=== PATIENT | female | born 1960 | race Caucasian/White ===

== ENCOUNTER → 2017-03-08 | Outpatient (CLI) | payer OTHER ==
--- NOTE | 2017-03-11 11:26 | MM ---
Reason for exam: follow-up at short interval from prior study. Last mammogram was performed 6 months ago. History: Patient is postmenopausal. Taking estrogen for 6 years 1 month. Physical Findings: Nurse did not find any significant physical abnormalities on exam. MG Diagnostic Mammo w CAD JESSICA Bilateral CC and MLO view(s) were taken. Prior study comparison: September 03, 2016, bilateral MG screening mammo w CAD. August 10, 2015, bilateral MG screening mammo w CAD. The breast tissue is heterogeneously dense. This may lower the sensitivity of mammography. No significant new findings when compared with previous films. These results were verbally communicated with the patient and result sheet given to the patient on 03/08/17. ASSESSMENT: Benign, BI-RAD 2 RECOMMENDATION: Routine screening mammogram of both breasts in 1 year.
== END | disposition home or self-care (01) ==
LOC: RADMAMWWP 10:18
PROVIDERS: ATTEND Obstetrics & Gynecology
DX: R92.8 Other abnormal and inconclusive findings on diagnostic imaging of breast (principal)

== ENCOUNTER → 2017-09-11 | Outpatient (CLI) | payer MEDICARE, OTHER ==
--- NOTE | 2017-09-11 12:58 | WWHP ---
[facility] - HISTORY AND PHYSICAL CHIEF COMPLAINT: The patient is here for her routine gynecologic exam. HPI: This is a 57-year-old, G3, P2-0-1-2 with an LMP of 2001. She is status post MADELINE, LSO and later RSO for benign reasons. The patient is without gynecologic complaints. PAST MEDICAL HISTORY: Schizoaffective disorder with bipolar component, type 2 diabetes, chronic hypertension and elevated cholesterol. MEDICATIONS: 1. Invega injections monthly. 2. Pravastatin 1 daily. 3. Metformin 1 daily. 4. Hydrochlorothiazide 1 daily. ALLERGIES: No known drug allergies. 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 SOCIAL HISTORY: She quit smoking in 2014 and denies alcohol and drug use. She has been a since 2004 and is not sexually active. She is not seeing anybody at this time and she is currently unemployed. REVIEW OF SYSTEMS: She has lost about 22 pounds over the last year and she has done this with diet changes. She denies respiratory, cardiac and GI problems. PHYSICAL EXAM: Blood pressure 114/84, height 5 feet 5 inches, weight 242 pounds, temperature 98.7, pulse 112. This is a well-developed, heavyset white female, who is alert and oriented x3, in no acute distress. HEENT: Within normal limits. NECK: Supple without mass or thyromegaly. CHEST AND LUNGS: Clear to auscultation. HEART: Mild tachycardia. BREASTS: Without mass or discharge. AXILLARY: Negative for adenopathy. BACK: Negative for CVA tenderness. ABDOMEN: Obese, soft, nontender without palpable masses. PELVIC: Normal external genitalia with no significant atrophy. Vagina reveals mild atrophy without lesions. There is no evidence of prolapse. Bimanual is negative for mass or tenderness. RECTOVAGINAL: Negative for mass or tenderness and is negative for occult blood. EXTREMITIES: Nontender. IMPRESSION: A 57-year-old menopausal female, status post total abdominal hysterectomy and bilateral salpingo-oophorectomy for benign reasons with normal gynecologic exam. PLAN: 1. Pap smears have been discontinued. 2. Self-breast examination was discussed. 3. Bilateral screening mammogram will be due in 02/2018 and a slip was given to the patient for this. 4. Osteoporosis prevention was discussed. We will plan on doing a bone density test at the time of her mammogram because of her early surgical menopause. She does have an order for this. 5. I have recommended screening colonoscopy. She states she is refusing to do this for personal reasons. I have discussed the reasoning for colorectal screening and different alternatives. She will consider this. 6. She will return in 1 year. TYRONE / CAIT: [id number] /
== END ==
LOC: WWCWWP 10:37
PROVIDERS: ATTEND Obstetrics & Gynecology
DX: Z01.419 Encounter for gynecological examination (general) (routine) without abnormal findings (principal)

== ENCOUNTER → 2017-09-11 | Outpatient (CLI) | payer MEDICARE, OTHER ==
[2017-09-11 20:44] LABS: Hemoglobin A1C 6.4 % (4.2-6.1)
== END | disposition home or self-care (01) ==
LOC: LABWHC1 11:22
PROVIDERS: ATTEND Psychiatry & Neurology Psychiatry
DX: Z51.81 Encounter for therapeutic drug level monitoring (principal); Z79.899 Other long term (current) drug therapy
CPT/HCPCS: 36415; 80061; 82947; 83036; 84146; 84439; 84443

== ENCOUNTER → 2018-04-16 | Outpatient (CLI) | payer MEDICARE ==
--- NOTE | 2018-04-16 13:51 | BD ---
EXAMINATION TYPE: Axial Bone Density DATE OF EXAM: 04/16/2018 COMPARISON: NONE CLINICAL HISTORY: Z78.0 POST MENOPAUSAL Height: 64 Weight: 229.5 FRAX RISK QUESTIONS: Alcohol (3 or more units per day): no Family History (Parent hip fracture): no Glucocorticoids (More than 3mos): no (Ex: prednisone, prednisolone, methylprednisolone, dexamethasone, and hydrocortisone). History of Fracture in Adulthood: no Secondary Osteoporosis: 1. Type 1 Diabetes: no 2. Hyperthyroidism: no 3. Menopause before 45: yes 4. Malnutrition: no 5. Chronic liver disease: no Rheumatoid Arthritis: no Current Tobacco Use: no RISK FACTORS HISTORY OF: Family History of Osteoporosis: yes Active: yes Diet low in dairy products/other sources of calcium: no Postmenopausal woman: total hysterectomy AGE 42 Lost more than 2 inches in height since high school: no MEDICATIONS: blood pressure, lipitor, metformin, abilify Additional History: EXAM MEASUREMENTS: Bone mineral densitometry was performed using the [employer] System. Bone mineral density as measured about the Lumbar spine is: ----- L1-L4(G/cm2): 1.343 T Score Values are as follows: ----- L2: 0.9 ----- L3: 2.1 ----- L4: 1.9 ----- L1-L4: 1.4 Bone mineral density has: increased 4.9 % since study of: 08.05.2003 Bone mineral density about the R hip (g/cm2): 0.984 Bone mineral density about the L hip (g/cm2): 0.968 T Score values are as follows: -----R Neck: -0.4 -----L Neck: -0.5 -----R Total: 0.2 -----L Total: 0.7 Bone mineral density has: decreased -1.3 % since study of: 08.05.2003 IMPRESSION: No evidence for osteoporosis or osteopenia. NOTE: T-SCORE=SD OF THE YOUNG ADULT MEAN.
--- NOTE | 2018-04-16 15:18 | MM ---
Reason for exam: screening (asymptomatic). Last mammogram was performed 1 year and 1 month ago. History: Patient is postmenopausal. Taking estrogen for 6 years 1 month. Physical Findings: A clinical breast exam by your physician is recommended on an annual basis and results should be correlated with mammographic findings. MG Screening Mammo w CAD Bilateral CC and MLO view(s) were taken. Prior study comparison: March 08, 2017, bilateral MG diagnostic mammo w CAD JESSICA. September 03, 2016, bilateral MG screening mammo w CAD. There are scattered fibroglandular densities. There is no discrete abnormality. No significant changes when compared with prior studies. ASSESSMENT: Negative, BI-RAD 1 RECOMMENDATION: Routine screening mammogram of both breasts in 1 year.
== END | disposition home or self-care (01) ==
LOC: RADMAMWWP 09:14
PROVIDERS: ATTEND Obstetrics & Gynecology
DX: Z12.31 Encounter for screening mammogram for malignant neoplasm of breast (principal); Z78.0 Asymptomatic menopausal state
CPT/HCPCS: 77067; 77080

== ENCOUNTER → 2019-07-21 | Outpatient (CLI) | payer MEDICARE ==
[2019-07-21 13:51] VITALS: BP 105/75; PULSE 105; RESP 18; TEMP 98.6; BMI 41.9
--- NOTE | 2019-07-21 14:43 | P.HPOB ---
History of Present Illness H&P Date: 07/21/19 Chief Complaint: The patient is here for her routine gynecologic exam and ma mmogram. This is a 59-year-old with an LMP of 2001. The patient is status post MADELINE, LSO and later RSO for benign reasons. Patient is without gynecologic complaints. Review of Systems The patient has gained 10 pounds over the last year. She denies respiratory, cardiac, or G.I. problems. Past Medical History Past Medical History: Diabetes Mellitus, Hyperlipidemia, Hypertension, Osteoarthritis (OA) Additional Past Medical History / Comment(s): Osteoarthritis of the left hip, type II diabetes. 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 She used ERT from 9898-3444. History of Any Multi-Drug Resistant Organisms: None Reported Past Surgical History: Cholecystectomy, Hysterectomy Additional Past Surgical History / Comment(s): MADELINE LSO and prior right oophorectomy. Arthroscopically with torn meniscus in right knee. right ankle chip fx. Past Anesthesia/Blood Transfusion Reactions: No Reported Reaction Past Psychological History: Bipolar, Depression, Schizoaffective Disorder Smoking Status: Former smoker Past Alcohol Use History: None Reported Additional Past Alcohol Use History / Comment(s): states she smokes 1ppd refused nicotine patch Past Drug Use History: None Reported Additional History: The patient quit smoking in 2014. She is a since 2004 and is not seeing anybody at this time. She is currently unemployed. - Past Family History Father Family Medical History: Myocardial Infarction ([place]) Additional Family Medical History / Comment(s): Father has and patient does not know cause. Apparently mother is alive at age 81. Patient has no sisters and no brothers. Family history of bipolar. Patient has 1 daughter and 1 son. Medications and Allergies Home Medications Medication Instructions Recorded Confirmed Type ARIPiprazole [Abilify] 07/21/19 History Atorvastatin [Lipitor] 07/21/19 History Hydrochlorothiazide [Hydrodiuril] 07/21/19 History metFORMIN HCL [Glucophage] 07/21/19 History Allergies Allergy/AdvReac Type Severity Reaction Status Date / Time No Known Allergies Allergy Verified 07/21/19 13:54 Exam Vital Signs Temp Pulse Resp BP Pulse Ox 07/21/19 13:37 98.6 F 105 H 18 105/75 91 L Intake and Output 08/07/21/19 07/21/19 22:59 06:59 14:59 Other: Weight 114.305 kg Height 5'5", weight 252 pounds, BMI 41.9. This is a well-developed well-nourished heavyset white female who is alert and oriented times 3 in no acute distress. HEENT: Within normal limits. NECK: Supple without mass or thyromegaly. CHEST AND LUNGS: Clear to auscultation. HEART: Regular rate and rhythm. BREASTS: Are without mass or discharge. AXILLARY EXAM: Negative for adenopathy. BACK: Negative for CVA tenderness. ABDOMEN: Soft, obese, nontender, without palpable masses. PELVIC EXAM: External genitalia appears normal with minimal atrophy. Vagina appears normal with minimal atrophy. There is no evidence of prolapse. Bimanual examination is negative for mass or tenderness. RECTAL EXAM: Rectovaginal exam is negative for mass or tenderness and is negative for occult blood. EXTREMITIES: Nontender. IMPRESSION: 1. 59-year-old menopausal female status post MADELINE LSO with prior right oophorectomy done for benign reasons. 2. Normal gynecologic exam. PLAN: 1. Pap smears have been discontinued. 2. Self breast awareness was discussed with the patient. 3. Screening mammogram will be done today. 4. Osteoporosis prevention was discussed. I have stressed the importance of adequate calcium, vitamin D and regular exercise. Recommended amounts of calcium and vitamin D were also discussed. 5. I've recommended screening colonoscopy based on her age. She is declining this. She has also discussed this with her primary care physician, Dr. Bassam Venegas. 6. She was advised to return in one year for her annual well woman exam.
--- NOTE | 2019-07-23 09:28 | MM ---
Reason for exam: screening (asymptomatic). Last mammogram was performed 1 year and 3 months ago. History: Patient is postmenopausal. Taking estrogen for 6 years 1 month. Physical Findings: A clinical breast exam by your physician is recommended on an annual basis and results should be correlated with mammographic findings. MG Screening Mammo w CAD Bilateral CC and MLO view(s) were taken. Prior study comparison: April 16, 2018, bilateral MG screening mammo w CAD. March 08, 2017, bilateral MG diagnostic mammo w CAD JESSICA. There are scattered fibroglandular densities. No significant changes when compared with prior studies. ASSESSMENT: Benign, BI-RAD 2 RECOMMENDATION: Routine screening mammogram of both breasts in 1 year.
== END | disposition home or self-care (01) ==
LOC: WWCWWP 13:21
PROVIDERS: ATTEND Obstetrics & Gynecology
DX: Z12.31 Encounter for screening mammogram for malignant neoplasm of breast (principal)
CPT/HCPCS: 77067

== ENCOUNTER → 2020-06-10 | Outpatient (CLI) | payer MEDICARE ==
--- NOTE | 2020-06-10 08:38 | CT ---
EXAMINATION TYPE: CT chest wo con DATE OF EXAM: 06/10/2020 COMPARISON: None HISTORY: cough CT DLP: 547.[address] of the chest was performed with lung and mediastinal window settings submitted. The la ck of contrast limits evaluation of the vascular, mediastinal and parenchymal structures including th e upper abdomen. LUNGS: Basilar atelectasis or parenchymal scarring noted. Chronic elevation right hemidiaphragm. Smal l groundglass density in the region of the lingula to reflect postinflammatory or current inflammator y process. Correlate clinically. MEDIASTINUM/MADHURI: Thoracic aorta is of normal caliber with limited evaluation given lack of contrast . The heart is not enlarged. No evidence for mediastinal mass. No lymph nodes greater than 1cm. UPPER ABDOMEN: Hepatic steatosis. OTHER: No significant other abnormality. IMPRESSION: 1. Small focus of groundglass infiltrate in the region of the lingula. Correlate for inflammatory pr ocess. 2. Basilar parenchymal scarring and chronic appearing elevation right hemidiaphragm.
--- NOTE | 2020-06-10 09:01 | US ---
EXAMINATION TYPE: US abdomen complete DATE OF EXAM: 06/10/2020 COMPARISON: CT lung today CLINICAL HISTORY: R74.8 R05. elevated LFT, on meds for HTN, Metformin, Abilify; gallbladder removed EXAM MEASUREMENTS: Liver Length: 15.8 cm Gallbladder Wall: surgically removed CBD: 0.6 cm Spleen: 11.2 cm Right Kidney: 12.0 x 7.5 x 5.1 cm Left Kidney: 10.0 x 5.3 x 5.2 cm US exam is technically limited by large body habitus. Pancreas: hyperechoic Liver: hyperechoic to right renal cortex, attenuated posteriorly suggests fatty liver Gallbladder: Surgically absent Evidence for sonographic Urbina's sign: no CBD: wnl Spleen: wnl Right Kidney: solid renal mass = 6.3 x 6.5 x 4.9cm seen mid and lower pole with internal vascularity seen Left Kidney: No hydronephrosis or masses seen Upper IVC: wnl Abd Aorta: wnl IMPRESSION: 1. Right renal mass. Additional workup with contrast CT is recommended. This is suspicious for neopla sm until proven otherwise.
== END | disposition home or self-care (01) ==
LOC: RADUSMAIN 07:54
PROVIDERS: ATTEND Family Medicine
DX: R91.8 Other nonspecific abnormal finding of lung field (principal); J98.6 Disorders of diaphragm
CPT/HCPCS: 71250; 76700

== ENCOUNTER → 2020-06-20 | Outpatient (CLI) | payer MEDICARE ==
--- NOTE | 2020-06-21 07:55 | CT ---
EXAMINATION TYPE: CT abdomen pelvis w con DATE OF EXAM: 06/20/2020 COMPARISON: 06/10/2020 ultrasound INDICATION: Right kidney mass. DLP: 2367 mGycm, Automated exposure control for dose reduction was used. CONTRAST: 100ml mL of Isovue 300. Study performed with Oral Contrast TECHNIQUE: Axial images were obtained from above the diaphragm to the pubic rami in the axial plane a t 5 mm thick sections. Reconstructed images are reviewed on the computer in the coronal plane. FINDINGS: Limited CT sections are obtained the lung bases. Some mild streak atelectasis is likely present at t he right lung base.. CT ABDOMEN: Liver: There is mild fatty infiltration liver. Some focal spurring may be along the anterior right lo be. No suspicious masses are evident. Spleen: Normal Pancreas: Normal Adrenal glands: The adrenal glands are normal. Gallbladder: Surgically absent Kidneys: There is a 6.4 x 7.3 x 5.4 cm heterogenous mass with enhancing similar to that of the kidney extending from the inferior anterior pole right kidney no additional masses are evident.. No hydrone phrosis is present. No cysts are present. Delayed images were obtained through the kidneys. There appears to be early washout of the mass inferior pole right kidney Aorta: Vascular calcification is within the aorta. Inferior vena cava: Normal. CT PELVIS: Loops of bowel within the abdomen and pelvis are normal. There are loops of bowel which are incom pletely distended or lack oral contrast limiting their evaluation. Appendix: Not identified. No suspicious dilated tubular structures or inflammatory changes are eviden t Urinary bladder: Decompressed with limited evaluation. Genitourinary structures: Uterus is absent. Adnexal regions are unremarkable. Osseous structures: No suspicious lytic or sclerotic lesions. No expansile lesions are identified. T here may be some fusion of sacroiliac joints. Mild facet degenerative changes within the lumbar spine . IMPRESSIONS: 1. 6.4 x 7.3 x 5.4 cm mass inferior anterior lateral pole right kidney. Neoplasm should be considere d until proven otherwise. 2. No suspicious areas identified to suggest metastatic disease.
== END | disposition home or self-care (01) ==
LOC: RADCTMAIN 17:14
PROVIDERS: ATTEND Family Medicine
DX: N28.89 Other specified disorders of kidney and ureter (principal)
CPT/HCPCS: 82565; 84520; 74177; 36415; Q9967

== ENCOUNTER → 2020-07-20 | Outpatient (CLI) | payer MEDICARE ==
[2020-07-20 13:17] LABS: African American GFR (CKD) >90 (>60 ml/min/1.73 sqM); Anion Gap 12 mmol/L; Blood Urea Nitrogen 14 mg/dL (7-17); Calcium 9.7 mg/dL (8.4-10.2); Carbon Dioxide 33 mmol/L (22-30); Chloride 93 mmol/L (98-107); Glucose 266 mg/dL (74-99); Non-African American GFR(CKD) >90 (>60 ml/min/1.73 sqM); Sodium 138 mmol/L (137-145)
[2020-07-20 13:19] LABS: Basophils # (A) 0.1 k/uL (0-0.2); Basophils % (A) 1 %; Eosinophils # (A) 0.1 k/uL (0-0.7); Eosinophils % (A) 2 %; HCT 50.2 % (34.0-46.0); Lymphocytes # (A) 1.7 k/uL (1.0-4.8); Lymphocytes % (A) 19 %; MCH 30.1 pg (25.0-35.0); MCHC 31.9 g/dL (31.0-37.0); MCV 94.4 fL (80.0-100.0); Mean Platelet Volume 7.9; Monocytes # (A) 0.3 k/uL (0-1.0); Monocytes % (A) 3 %; Neutrophils # (A) 6.6 k/uL (1.3-7.7); Neutrophils % (A) 74 %; Platelet Count 284 k/uL (150-450); RBC 5.31 m/uL (3.80-5.40); WBC 8.9 k/uL (3.8-10.6)
== END | disposition home or self-care (01) ==
LOC: LABPAT 11:14
PROVIDERS: ATTEND Urology
DX: Z01.818 Encounter for other preprocedural examination (principal); D41.01 Neoplasm of uncertain behavior of right kidney
CPT/HCPCS: 36415; 80048; 85025; 86850; 86900; 86901

== ENCOUNTER → 2020-07-21 | Outpatient (CLI) | payer MEDICARE | END | disposition home or self-care (01) | LOC: LABWHC1 14:00 | PROVIDERS: ATTEND Urology | DX: Z01.818 Encounter for other preprocedural examination (principal); D41.01 Neoplasm of uncertain behavior of right kidney | CPT/HCPCS: 87086 ==

== ENCOUNTER → 2020-07-25 | Outpatient (CLI) | payer MEDICARE | END | disposition home or self-care (01) | LOC: LABPAT 14:22 | PROVIDERS: ATTEND Urology | DX: I10 Essential (primary) hypertension (principal) | CPT/HCPCS: 93005 ==

== ENCOUNTER 2020-07-28 10:45 | Inpatient (IN) | payer MEDICARE ==
--- NOTE | 2020-07-21 11:36 | P.HPIHPCON ---
History of Present Illness H&P Date: 07/28/20 Chief Complaint: Right-sided renal mass Ms Forbes 60-year-old female with history of 7.3 cm right-sided renal mass, concerning for RCC. I discussed with her given the finding on CT scan I recommend she undergoes surgical intervention. Discussed with her the option of biopsy. I discussed with her given the size of the tumor the option of doing a radical nephrectomy either open or robotically. I discussed the risk and benefit of each approach. She agreed to proceed with right-sided radical nephrectomy robotically. I discussed with her the risk which includes but not limited to injury to the liver bowel blood vessels. I also discussed the potential of benign pathology. Discussed the risk of infection and bleeding. I also discussed the potential that she'll be on dialysis postoperatively given that she'll have a solitary kidney. Also discussed the risk from anesthesia. She understood all the risk and agreed to proceed with robotic-assisted radical nephrectomy on the right Consent for Procedure: I have explained the operation/procedure to the patient, including the risks, benefits, side effects, alternative therapies (including not receiving the proposed treatment or service), the likelihood of the patient achieving his/her goals, and potential recuperation problems for the procedure/sedation/analgesia, as well as any blood products, if indicated. I also explained to the patient the risks, benefits and side effects of the alternatives, as well as the risks related to not receiving the proposed procedure, care, treatment, or services. Past Medical History Past Medical History: Diabetes Mellitus, Hyperlipidemia, Hypertension, Osteoarthritis (OA) Additional Past Medical History / Comment(s): Osteoarthritis of the left hip, type II diabetes. 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 She used ERT from [id number]. History of Any Multi-Drug Resistant Organisms: None Reported Past Surgical History: Cholecystectomy, Hysterectomy Additional Past Surgical History / Comment(s): MADELINE LSO and prior right oophorectomy. Arthroscopically with torn meniscus in right knee. right ankle chip fx. Past Anesthesia/Blood Transfusion Reactions: No Reported Reaction Past Psychological History: Bipolar, Depression, Schizoaffective Disorder Past Alcohol Use History: None Reported Additional Past Alcohol Use History / Comment(s): states she smokes 1ppd refused nicotine patch Past Drug Use History: None Reported - Past Family History Father Family Medical History: Myocardial Infarction ([place]) Additional Family Medical History / Comment(s): Father has and patient does not know cause. Apparently mother is alive at age 81. Patient has no sisters and no brothers. Family history of bipolar. Patient has 1 daughter and 1 son. Medications and Allergies Home Medications Medication Instructions Recorded Confirmed Type ARIPiprazole [Abilify] 07/21/19 History Atorvastatin [Lipitor] 07/21/19 History hydroCHLOROthiazide [Hydrodiuril] 07/21/19 History metFORMIN HCL [Glucophage] 07/21/19 History Allergies Allergy/AdvReac Type Severity Reaction Status Date / Time No Known Allergies Allergy Verified 07/21/19 13:54 Surgical - Exam - General well developed, well nourished, no distress, no pain - Respiratory normal expansion, normal respiratory effort - Abdomen Abdomen: soft, non tender - Psychiatric oriented to time, oriented to person, oriented to place Assessment and Plan Assessment: 60-year-old female with history of right-sided renal mass Plan: All or for robotic-assisted right radical nephrectomy
[~2020-07-28 10:45] MED LIST: DEXAMETHASONE SOD PHOSPHATE 10 MG/ML 1 ML VIAL IV ONE; HYDROmorphone 0.5 MG/0.5 ML SYRINGE IVP PRN; ONDANSETRON 4 MG/2 ML VIAL IVP ONE
[2020-07-28] MEDS: LACTATED RINGERS 1,000 ML IV SCH ×2 (11:42→11:45)
[2020-07-28 11:44] LABS: Glucose,Whole Blood 285 mg/dL (75-99)
[2020-07-28] MEDS ORDERED: LIDOCAINE 1% (10MG/ML) FOR IV START INTRADERMA ONE (11:44)
[2020-07-28] MEDS: fentaNYL (PF) 50 MCG/ML 2 ML AMP IV ONE ×5 (12:07→17:45)
[2020-07-28] MEDS ORDERED: MIDAZOLAM 2 MG/2 ML VIAL IV ONE (12:07)
[2020-07-28] MEDS ORDERED: INSULIN ASPART (NovoLOG) 100 UNIT/ML VIAL SQ ONE ×2 (12:16→18:55)
[2020-07-28] MEDS ORDERED: PHENYLEPHRINE-0.9% NACL SYG 1 MG/10 ML SYRINGE ONE (12:24)
[2020-07-28] MEDS ORDERED: METOPROLOL TARTRATE 5 MG/5 ML VIAL IVP ONE (12:24)
[2020-07-28] MEDS ORDERED: NALOXONE 0.4 MG/ML 1 ML VIAL ONE (12:24)
[2020-07-28] MEDS ORDERED: DEXAMETHASONE SOD PHOSPHATE 4 MG/ML 1 ML VIAL ONE (12:24)
[2020-07-28] MEDS ORDERED: HYDROmorphone (PF) 1 MG/ML ONE (12:24)
[2020-07-28] MEDS ORDERED: fentaNYL (PF) 50 MCG/ML 2 ML AMP ONE (12:24)
[2020-07-28] MEDS ORDERED: NEOSTIGMINE 1 MG/ML 10 ML VIAL ONE (12:24)
[2020-07-28] MEDS ORDERED: PROPOFOL 10 MG/ML 20 ML VIAL IV ONE (12:24)
[2020-07-28] MEDS ORDERED: GLYCOPYRROLATE 0.2 MG/ML 2 ML VIAL ONE (12:24)
[2020-07-28] MEDS ORDERED: ROCURONIUM BROMIDE 10 MG/ML 5 ML VIAL IV ONE (12:24)
[2020-07-28] MEDS ORDERED: SUCCINYLCHOLINE CHLORIDE 100 MG/5 ML SYR IV ONE (12:24)
[2020-07-28] MEDS ORDERED: ROPIVACAINE 5 MG/ML 30 ML VIAL ONE (12:24)
[2020-07-28] MEDS ORDERED: BUPIVACAINE (PF) 0.5% 30 ML VIAL SQ ONE (13:08)
[2020-07-28] MEDS ORDERED: LACTATED RINGERS 1,000 ML IV ONE (13:29)
--- NOTE | 2020-07-28 13:55 | P.ANPRN ---
Procedure Note - Anesthesia - Nerve Block Performed Bilateral Transversus Abdominis Single Time Out Performed: Yes (1207) Date of Procedure: 07/28/20 Procedure Start Time: 12:08 Procedure Stop Time: 12:13 Location of Patient: PreOp Indication: Acute Post-Operative Pain, Requested by Surgeon Specifically requested for management of pain by : Juliocesar Sanford Sedation Type: Sedate with meaningful contact maintained Preparation: Sterile Prep Position: Supine Catheter: None Needle Types: Pajunk Needle Gauge: 21 Ultrasound used to visualize needle placement: Yes Ultrasound used to observe medication spread: Yes Injectate: 0.5% Ropivacaine (see comment for volume) (30CC 15CC EACH SIDE) Blood Aspirated: No Pain Paresthesia on Injection Noted: No Resistance on Injection: Normal Image Stored and Saved: Yes Events: Uneventful and Well Tolerated
[2020-07-28 13:57] LABS: Glucose,Whole Blood 306 mg/dL (75-99)
[2020-07-28] MEDS ORDERED: HYDROmorphone 1 MG/ML 1 ML SYRINGE IVP PRN (14:47)
--- NOTE | 2020-07-28 15:06 | P.OP ---
Date of Procedure: 07/28/20 Preoperative Diagnosis: right renal mass Postoperative Diagnosis: same Procedure(s) Performed: robotic-assisted right sided radical nephrectomy, lysis of adhesions Implants: none Anesthesia: PEBBLES Surgeon: Juliocesar Sanford Salesperson Driver #1: Angeli Dorantes Estimated Blood Loss (ml): 100 Pathology: other (right kidney) Condition: stable Disposition: PACU Indications for Procedure: Ms Forbes 60-year-old female with history of 7.3 cm right-sided renal mass, concerning for RCC. I discussed with her given the finding on CT scan I recommend she undergoes surgical intervention. Discussed with her the option of biopsy. I discussed with her given the size of the tumor the option of doing a radical nephrectomy either open or robotically. I discussed the risk and benefit of each approach. She agreed to proceed with right-sided radical nephrectomy robotically. I discussed with her the risk which includes but not limited to injury to the liver bowel blood vessels. I also discussed the potential of benign pathology. Discussed the risk of infection and bleeding. I also discussed the potential that she'll be on dialysis postoperatively given that she'll have a solitary kidney. Also discussed the risk from anesthesia. She understood all the risk and agreed to proceed with robotic-assisted radical nephrectomy on the right Operative Findings: right-sided renal mass, significant amount of fat surrounding the kidney, adhesions along the right quadrant Description of Procedure: The patient was taken to the operating room . General anesthesia was induced. She was prepped and draped in sterile fashion, and was placed in modified flank position . All pressure points were padded. The abdominal insufflation was achieved with the Veress needle. A 8 mm camera port was placed. Robotic trocars and assistant passenger locomotive engineer ports were placed under direct vision. it was noted along the liver there to be there to be a superficial Veress needle injury, but there was no bleeding noticed. lysis of adhesion was performed, omentum was stuck to the liver and lysis of adhesion was performed in order to mobilize the liver to allow for a liver retractor placement.a 5 mm liver retractor was placed. The robot was docked into place. she had significant adhesion along the right quadrant and this was taken down robotically. The colon was mobilized medially by incising along the white line of Toldt. Next the duodenum was kocherized. patient had significant amount of fat around the kidney which made exposing the vena cava very challenging. At this time this 2 stitches were placed in to the kidney fat and tagged on to the abdominal wallAt this time the vena cava was exposed. Next the ureter was retracted anteriorly off the psoas muscle. Dissection proceeded cranially towards the renal hilum.. The upper pole attachments were dissected. Care was taken to safely mobilize the kidney free of all visceral structures.The renal vessels were dissected. At this point the renal vessels were exposed. Next the renal hilum was ligated using the vascular stapler. The adrenal gland was mobilized. Lateral and remaining kidney attachments were released. The ureter was dissected further distally. The ureter was ligated using the vascular stapler. The kidney was placed in an Endo Catch bag. Hemostatic agent were applied to the surgical field, and into the area of liver injury. The robot was then de-docked and the specimen was then removed by extending the assistant passenger locomotive engineer port. of note patient had a very weak fascia Fascia was closed with one layer using #1 Stratafix. Skin was closed with subcuticular sutures and dermabond. The patient was awoken from general anesthesia in stable condition. Please refer to the final pathology report for final diagnosis
[2020-07-28] MEDS ORDERED: ALBUTEROL NEBULIZED 2.5 MG/3 ML INHALATION STA (16:00)
[2020-07-28 16:06] LABS: Glucose,Whole Blood 324 mg/dL (75-99)
[2020-07-28] MEDS ORDERED: INSULIN REGULAR 100 UNIT/ML VIAL IV ONE (16:21)
[2020-07-28 17:10] LABS: Glucose,Whole Blood 308 mg/dL (75-99)
[2020-07-28] MEDS ORDERED: NALOXONE 0.4 MG/ML 1 ML VIAL IV PRN (17:51)
[2020-07-28] MEDS ORDERED: D5-0.45% NACL WITH KCL 20MEQ/L 1,000 ML IV SCH (18:00)
[2020-07-28 18:02] LABS: Glucose,Whole Blood 314 mg/dL (75-99)
[2020-07-28 18:14] LABS: Basophils % (A) 0 %; Eosinophils % (A) 0 %; HCT 46.1 % (34.0-46.0); HGB 14.3 gm/dL (11.4-16.0); Lymphocytes # (A) 0.9 k/uL (1.0-4.8); Lymphocytes % (A) 5 %; MCH 29.8 pg (25.0-35.0); MCHC 31.1 g/dL (31.0-37.0); MCV 95.9 fL (80.0-100.0); Mean Platelet Volume 7.6; Monocytes # (A) 0.3 k/uL (0-1.0); Monocytes % (A) 2 %; Neutrophils # (A) 15.7 k/uL (1.3-7.7); Neutrophils % (A) 93 %; Platelet Count 299 k/uL (150-450); RBC 4.81 m/uL (3.80-5.40)
[2020-07-28] MEDS: metFORMIN 500 MG TAB PO SCH (18:23)
[2020-07-28] MEDS: HEPARIN SODIUM,PORCINE 5,000 UNIT/ML 1 ML VIAL SQ SCH (18:23)
[2020-07-28] MEDS: methocarbamoL 750 MG TAB PO SCH ×2 (18:25→21:51)
[2020-07-28 18:29] LABS: Calcium 8.8 mg/dL (8.4-10.2); Magnesium 1.5 mg/dL (1.6-2.3); Phosphorus 3.8 mg/dL (2.5-4.5); Total Bilirubin 1.2 mg/dL (0.2-1.3); Total Protein 6.5 g/dL (6.3-8.2)
[2020-07-28 18:34] LABS: Allen Test Performed? Yes
[2020-07-28 18:38] LABS: ABG Base Excess 3.2 mmol/L; ABG HCO3 30 mmol/L (21-25); ABG PCO2 57 mmHg (35-45); ABG PH 7.34 (7.35-7.45); ABG PO2 83 mmHg (83-108); ABG TCO2 18 mmol/L (19-24)
[2020-07-28 19:07] LABS: Glucose,Whole Blood 297 mg/dL (75-99)
[2020-07-28] MEDS: SODIUM CHLORIDE 0.9% 1,000 ML IV SCH (19:08)
[2020-07-28 20:35] LABS: Glucose,Whole Blood 279 mg/dL (75-99)
[2020-07-28] MEDS: ARIPiprazole 10 MG TAB PO SCH (22:11)
[2020-07-28] MEDS: ATORVASTATIN 20 MG TAB PO SCH (22:11)
--- NOTE | 2020-07-28 22:24 | XR ---
EXAMINATION: XR chest 1V portable DATE AND TIME: 07/28/2020 5:53 PM CLINICAL INDICATION: PHH; Hematuria TECHNIQUE: AP portable upright COMPARISON: 04/06/2015 FINDINGS: The overlying soft tissues are prominent. The hemidiaphragms are elevated consistent with low lung inflation at the moment of x-ray exposure. There appears to be a mild reticular pattern of increased density throughout the lungs bilaterally si lhouetting the pulmonary vasculature to a mild degree. This can correlate with a clinical diagnosis o f relatively mild interstitial phase pulmonary edema, presumably cardiogenic given the moderately-enl arged cardiac silhouette. The pleural spaces are negative. The skeletal structures and soft tissues are negative for acute findings. IMPRESSION: Low lung volumes noted. Suspect interstitial phase pulmonary edema.
[2020-07-29 00:31] LABS: Glucose,Whole Blood 220 mg/dL (75-99)
[2020-07-29] MEDS: HEPARIN SODIUM,PORCINE 5,000 UNIT/ML 1 ML VIAL SQ SCH ×4 (00:36→23:10)
[2020-07-29] MEDS: INSULIN ASPART (NovoLOG) 100 UNIT/ML VIAL SQ SCH ×5 (00:36→20:45)
[2020-07-29] MEDS: SODIUM CHLORIDE 0.9% 1,000 ML IV SCH ×2 (03:48→10:47)
[2020-07-29 06:06] LABS: Basophils % (A) 0 %; Eosinophils % (A) 0 %; HCT 40.7 % (34.0-46.0); HGB 12.6 gm/dL (11.4-16.0); Lymphocytes # (A) 1.2 k/uL (1.0-4.8); Lymphocytes % (A) 12 %; MCH 29.6 pg (25.0-35.0); MCV 95.4 fL (80.0-100.0); Mean Platelet Volume 7.5; Monocytes # (A) 0.4 k/uL (0-1.0); Monocytes % (A) 4 %; Neutrophils # (A) 7.7 k/uL (1.3-7.7); Neutrophils % (A) 82 %; Platelet Count 250 k/uL (150-450); RBC 4.27 m/uL (3.80-5.40); RDW 14.4 % (11.5-15.5); WBC 9.4 k/uL (3.8-10.6)
[2020-07-29 06:21] LABS: Potassium 3.9 mmol/L (3.5-5.1)
[2020-07-29 07:22] LABS: Glucose,Whole Blood 173 mg/dL (75-99)
[2020-07-29] MEDS: methocarbamoL 750 MG TAB PO SCH ×4 (09:15→20:38)
[2020-07-29] MEDS ORDERED: Magnesium Replacement Protocol 1 EACH MISC MISCELLANE PRN (09:17)
[2020-07-29] MEDS: MAGNESIUM SULFATE-D5W PMX 1 GM in DEXTROSE/WATER 1 100ML.BAG IVPB SCH ×2 (09:23→10:45)
[2020-07-29] MEDS: GLIMEPIRIDE 4 MG TAB PO SCH (09:48)
[2020-07-29 11:57] LABS: Glucose,Whole Blood 257 mg/dL (75-99)
--- NOTE | 2020-07-29 12:12 | P.CNPUL ---
History of Present Illness Consult date: 07/29/20 Requesting physician: Juliocesar Sanford Reason for consult: other (Postoperative hypercapnic respiratory failure requiring BiPAP.) Chief complaint: Status post robotic-assisted right sided radical nephrectomy and lyses of a History of present illness: This is a 60-year-old female, recently discovered to have a 7.3 cm right sided adrenal mass concerning for renal cell carcinoma. Patient underwent robotic- assisted right sided radical nephrectomy and lyses of adhesions yesterday. However post extubation, patient required to be placed on BiPAP, and could not be switched to a nasal cannula. Multiple attempts were made in the recovery room, then I was notified by the surgeon about this concern, I recommended that the patient remains on BiPAP, recommended transferring the patient to the ICU, and to hold Robaxin, continue Dilaudid. Overnight the patient was placed on BiPAP at 15/5 and 40% FiO2. Patient did extremely well through the night, and after I evaluated the patient this morning, I switch her to a nasal cannula at 2 L. And Her O2 saturation just above 90%. Patient is morbidly obese, she has history of chronic cough for the last 6 months, she has been a 12-ntab-enel smoker but she quit smoking about 5 years ago. No documented history of obstructive sleep apnea no previous sleep study, patient is being evaluated on outpatient basis for a 6 month history of cough, and workup is pending supposed to have a full PFT in the next few weeks. Patient is known to have history of obesity, diabetes, dyslipidemia, hypertension, degenerative joint disease, bipolar disorder. Review of Systems Constitutional: Negative, no fever no chills no weight loss. HEENT: Symptoms of obstructive sleep apnea/mild. Pulmonary: Chronic cough, 6 months duration, no wheezing, no shortness of breath. No chest pain. No fever no chills no hemoptysis. Cardiac: History of hypertension, no symptoms of chest pain or orthopnea or PND. GI: Denies any symptoms of GERD. Genitourinary: Negative. Patient is status post right-sided nephrectomy. Musculoskeletal: History of degenerative joint disease. Skin: Negative. Neurologic: Negative no headaches blurred vision dizziness. Endocrine: No heat or cold intolerance. Known history of type 2 diabetes. Hematologic: No clotting bleeding or bruising. Psychiatric: History of bipolar disorder, schizoaffective disorder. And history of depression. Presently inactive. Past Medical History Past Medical History: Diabetes Mellitus, Hyperlipidemia, Hypertension, Osteoarthritis (OA) Additional Past Medical History / Comment(s): Osteoarthritis of the left hip, ty pe II diabetes. PAST PLASTER TENDER HISTORY: She has no history of STDs. She used ERT from [id number]. History of Any Multi-Drug Resistant Organisms: None Reported Past Surgical History: Cholecystectomy, Hysterectomy Additional Past Surgical History / Comment(s): MADELINE LSO and prior right oophorectomy. Arthroscopically with torn meniscus in right knee. right ankle chip fx. Past Anesthesia/Blood Transfusion Reactions: No Reported Reaction Additional Past Alcohol Use History / Comment(s): states she smokes 1ppd refused nicotine patch - Past Family History Father Family Medical History: Myocardial Infarction ([place]) Additional Family Medical History / Comment(s): Father has and patient does not know cause. Apparently mother is alive at age 81. Patient has no sisters and no brothers. Family history of bipolar. Patient has 1 daughter and 1 son. Medications and Allergies Home Medications Medication Instructions Recorded Confirmed Type ARIPiprazole [Abilify] 10 mg PO HS 07/21/19 07/28/20 History Atorvastatin [Lipitor] 20 mg PO HS 07/21/19 07/28/20 History hydroCHLOROthiazide [Hydrodiuril] 25 mg PO DAILY 07/21/19 07/28/20 History metFORMIN HCL [Glucophage] 1,000 mg PO AC-SUPPER 07/21/19 07/28/20 History Glimepiride [Amaryl] 4 mg PO AC-BRKFST 07/22/20 07/28/20 History Allergies Allergy/AdvReac Type Severity Reaction Status Date / Time No Known Allergies Allergy Verified 07/28/20 11:25 Physical Exam Vitals: Vital Signs Temp Pulse Pulse Resp BP BP Pulse Ox 07/29/20 11:00 97 20 115/59 88 L 07/29/20 10:00 99 22 125/70 89 L 07/29/20 09:00 94 21 118/67 91 L 07/29/20 08:00 98.1 F 92 14 125/71 91 L 07/29/20 07:00 98 21 115/66 92 L 07/29/20 06:00 93 22 111/70 94 L 07/29/20 05:00 94 17 111/63 92 L 07/29/20 04:00 98.2 F 101 H 19 112/66 91 L 07/29/20 03:00 105 H 15 113/60 90 L 07/29/20 02:00 106 H 19 110/63 93 L 07/29/20 01:00 101 H 22 155/77 92 L 07/29/20 00:00 98.0 F 110 H 24 136/83 90 L 07/28/20 23:00 108 H 11 L 125/80 92 L 07/28/20 22:00 108 H 20 119/71 89 L 07/28/20 21:00 101 H 25 H 119/62 91 L 07/28/20 20:00 98.7 F 108 H 20 121/70 89 L 07/28/20 19:00 101 H 24 125/69 93 L 07/28/20 18:50 103 H 32 H 94 L 07/28/20 18:40 106 H 20 92 L 07/28/20 18:30 101 H 26 H 93 L 07/28/20 18:20 101 H 28 H 91 L 07/28/20 18:10 97.9 F 100 27 H 129/63 89 L 07/28/20 18:00 100 18 07/28/20 17:30 99 18 119/58 95 07/28/20 17:15 102 H 18 124/70 96 07/28/20 17:00 102 H 18 124/70 92 L 07/28/20 16:30 92 18 121/71 94 L 07/28/20 16:26 94 07/28/20 16:15 94 18 116/71 94 L 07/28/20 16:06 96 07/28/20 16:00 96 18 129/69 94 L 07/28/20 15:46 97 F L 100 18 128/78 94 L 07/28/20 12:15 106 H 18 135/77 94 L Intake and Output 07/28/20 07/29/20 07/29/20 22:59 06:59 14:59 Intake Total 1000 1100 600 Output Total 240 405 180 Balance 760 695 420 Intake: IV 1000 1000 600 Magnesium Sulfate-D5w Pmx 100 1 gm In Dextrose/Water 1 100ml.bag @ 100 mls/hr IVPB Q1H [facility] Rx#: [id number] Sodium Chloride 0.9% 1, 500 1000 500 000 ml @ 125 mls/hr IV . Q8H [facility] Rx#:[id number] Oral 100 Output: Urine 240 405 180 Other: Voiding Method Indwelling Catheter Indwelling Catheter Weight 118.7 kg 121.8 kg Physical Exam: Revealed 60-year-old female in no distress. Extremely pleasant. Head: Atraumatic, normocephalic. HEENT:[Neck is supple.] [No neck masses.] [No thyromegaly.] [No JVD.] Mallampati class III. Chest: [Symmetrical chest expansion, diminished at the bases no rhonchi and no wheezes Cardiac Exam: Distant S1 and S2. no S3 gallop, no murmur.] Abdomen: Obese, [Soft, nontender, no megaly, no rebound, no guarding, normal bowel sounds.] Extremities: [No clubbing, no edema, no cyanosis.] Good pulses bilaterally. Neurological Exam: [No focal neurologic deficit.] Alert oriented 3 focal deficits. Psychiatric: Normal mood affect and normal mental status examination. Skin: No rashes. Musculoskeletal no deformities noted limitation range of motion. Lymphatics: No lymphadenopathy cervical or supraclavicular Results - Laboratory Findings CBC and BMP: 07/29/20 05:25 07/29/20 05:25 ABG ABG pH 7.34 (7.35-7.45) L 07/28/20 18:23 ABG pCO2 57 mmHg (35-45) H 07/28/20 18:23 ABG pO2 83 mmHg (83-108) 07/28/20 18:23 ABG O2 Saturation 92.0 % (94-97) L 07/28/20 18:23 Abnormal lab findings: Abnormal Labs 07/28/20 07/28/20 07/28/20 11:42 13:55 16:05 WBC Hct Neutrophils # Lymphocytes # ABG pH ABG pCO2 ABG HCO3 ABG Total CO2 ABG O2 Saturation Sodium Chloride Carbon Dioxide Creatinine Glucose POC Glucose (mg/dL) 285 H 306 H 324 H Calcium Magnesium AST ALT 07/28/20 07/28/20 07/28/20 17:08 18:00 18:03 WBC 17.0 H Hct 46.1 H Neutrophils # 15.7 H Lymphocytes # 0.9 L ABG pH ABG pCO2 ABG HCO3 ABG Total CO2 ABG O2 Saturation Sodium Chloride Carbon Dioxide Creatinine Glucose POC Glucose (mg/dL) 308 H 314 H Calcium Magnesium AST ALT 07/28/20 07/28/20 07/28/20 18:03 18:23 19:06 WBC Hct Neutrophils # Lymphocytes # ABG pH 7.34 L ABG pCO2 57 H ABG HCO3 30 H ABG Total CO2 18 L ABG O2 Saturation 92.0 L Sodium 136 L Chloride 97 L Carbon Dioxide Creatinine 1.10 H Glucose 331 H POC Glucose (mg/dL) 297 H Calcium Magnesium 1.5 L AST 235 H ALT 138 H 07/28/20 07/29/20 07/29/20 20:34 00:30 05:25 WBC Hct Neutrophils # Lymphocytes # ABG pH ABG pCO2 ABG HCO3 ABG Total CO2 ABG O2 Saturation Sodium Chloride Carbon Dioxide 32 H Creatinine 1.15 H Glucose 178 H POC Glucose (mg/dL) 279 H 220 H Calcium 8.0 L Magnesium AST ALT 07/29/20 07/29/20 07/29/20 05:25 07:21 11:56 WBC Hct Neutrophils # Lymphocytes # ABG pH ABG pCO2 ABG HCO3 ABG Total CO2 ABG O2 Saturation Sodium Chloride Carbon Dioxide Creatinine Glucose POC Glucose (mg/dL) 173 H 257 H Calcium Magnesium 1.5 L AST ALT - Diagnostic Findings Chest x-ray: image reviewed (By basilar atelectasis, low lung volumes, otherwise no evidence of active disease) Assessment and Plan Assessment: Impression: Status post right sided robotic-assisted nephrectomy postoperative day #1. Postoperative hypoxic and hypercapnic respiratory failure, unexpected, mostly related to obesity/hypoventilation syndrome and obstructive sleep apnea syndrome is strongly suspected. With postoperative atelectasis. Suspect some component of COPD, likely mild considering the patient had a [id number] smoking history. Again doubt being active COPD. Obstructive sleep apnea syndrome is strongly suspected, patient will need to alvarez ve outpatient sleep study. Morbid obesity. Type 2 diabetes. Degenerative joint disease Benign essential hypertension History of bipolar disorder. Ex-smoker, quit smoking 5 years ago. chronic cough, being investigated on outpatient basis. Recommendation: Discontinue BiPAP Switch patient to 2 L nasal cannula and titrate FiO2 to keep O2 saturation just above 90%. Incentive spirometry. Early ambulation. DuoNeb updrafts 4 times a day and when necessary. Outpatient follow-up regarding chronic cough obstructive sleep apnea and possible component of COPD. Patient will likely benefit from having a sleep study on outpatient basis. And will definitely need a full PFT. Will transfer patient out of the ICU to regular medical floor. Will follow. Time with Patient: Greater than 30
[2020-07-29 14:17] LABS: Hemoglobin A1C 11.2 % (4.0-6.0)
[2020-07-29] MEDS: IPRATROPIUM-ALBUTEROL 3 ML NEB INHALATION SCH ×3 (15:29→23:13)
[2020-07-29] MEDS: metFORMIN 500 MG TAB PO SCH (16:20)
[2020-07-29 16:47] LABS: Glucose,Whole Blood 229 mg/dL (75-99)
[2020-07-29] MEDS: INSULIN DETEMIR (LEVEMIR) 100 UNIT/ML SYR SQ SCH (17:21)
--- NOTE | 2020-07-29 18:05 | P.PN ---
Subjective Progress Note Date: 07/29/20 Principal diagnosis: Right renal mass Postoperative day #1 status post right radical nephrectomy, patient admitted to the ICU postoperatively due to BiPAP requirement. This am on evaluation she is on 3 L of oxygen, no respiratory distress. Her pain is controlled she is tolerating a diet has been out of bed into chair Objective - Vital Signs Vital signs: Vital Signs Temp 98.0 F 07/29/20 16:00 Pulse 102 H 07/29/20 16:00 Resp 20 07/29/20 16:00 BP 118/61 07/29/20 16:00 Pulse Ox 89 L 07/29/20 16:00 Intake & Output 07/28/20 07/29/20 07/29/20 18:59 06:59 18:59 Intake Total 2275 1475 1450 Output Total 160 585 405 Balance 2115 890 1045 Weight 118.7 kg 121.8 kg Intake: IV 2275 1375 1450 Magnesium Sulfate-D5w Pmx 200 1 gm In Dextrose/Water 1 100ml.bag @ 100 mls/hr IVPB Q1H [facility] Rx#: [id number] Sodium Chloride 0.9% 1, 125 1375 1250 000 ml @ 125 mls/hr IV . Q8H [facility] Rx#:[id number] Oral 100 Output: Urine 110 585 405 Estimated Blood Loss 50 Other: Voiding Method Indwelling Catheter Indwelling Catheter # Voids 0 - Constitutional General appearance: Present: no acute distress - Gastrointestinal General gastrointestinal: Present: soft. Absent: distended, rigid - Integumentary Integumentary Comment(s): Incision: CDI - Psychiatric Psychiatric: Present: A&O x's 3 - Labs CBC & Chem 7: 07/29/20 05:25 07/29/20 05:25 Labs: Abnormal Lab Results - Last 24 Hours (Table) 07/28/20 07/28/20 07/28/20 Range/Units 18:00 18:03 18:03 WBC 17.0 H (3.8-10.6) k/uL Hct 46.1 H (34.0-46.0) % Neutrophils # 15.7 H (1.3-7.7) k/uL Lymphocytes # 0.9 L (1.0-4.8) k/uL ABG pH (7.35-7.45) ABG pCO2 (35-45) mmHg ABG HCO3 (21-25) mmol/L ABG Total CO2 (19-24) mmol/L ABG O2 Saturation (94-97) % Sodium 136 L (137-145) mmol/L Chloride 97 L (98-107) mmol/L Carbon Dioxide (22-30) mmol/L Creatinine 1.10 H (0.52-1.04) mg/dL Glucose 331 H (74-99) mg/dL POC Glucose (mg/dL) 314 H (75-99) mg/dL Hemoglobin A1c (4.0-6.0) % Calcium (8.4-10.2) mg/dL Magnesium 1.5 L (1.6-2.3) mg/dL AST 235 H (14-36) U/L ALT 138 H (4-34) U/L 07/28/20 07/28/20 07/28/20 Range/Units 18:23 19:06 20:34 WBC (3.8-10.6) k/uL Hct (34.0-46.0) % Neutrophils # (1.3-7.7) k/uL Lymphocytes # (1.0-4.8) k/uL ABG pH 7.34 L (7.35-7.45) ABG pCO2 57 H (35-45) mmHg ABG HCO3 30 H (21-25) mmol/L ABG Total CO2 18 L (19-24) mmol/L ABG O2 Saturation 92.0 L (94-97) % Sodium (137-145) mmol/L Chloride (98-107) mmol/L Carbon Dioxide (22-30) mmol/L Creatinine (0.52-1.04) mg/dL Glucose (74-99) mg/dL POC Glucose (mg/dL) 297 H 279 H (75-99) mg/dL Hemoglobin A1c (4.0-6.0) % Calcium (8.4-10.2) mg/dL Magnesium (1.6-2.3) mg/dL AST (14-36) U/L ALT (4-34) U/L 07/29/20 07/29/20 07/29/20 Range/Units 00:30 05:25 05:25 WBC (3.8-10.6) k/uL Hct (34.0-46.0) % Neutrophils # (1.3-7.7) k/uL Lymphocytes # (1.0-4.8) k/uL ABG pH (7.35-7.45) ABG pCO2 (35-45) mmHg ABG HCO3 (21-25) mmol/L ABG Total CO2 (19-24) mmol/L ABG O2 Saturation (94-97) % Sodium (137-145) mmol/L Chloride (98-107) mmol/L Carbon Dioxide 32 H (22-30) mmol/L Creatinine 1.15 H (0.52-1.04) mg/dL Glucose 178 H (74-99) mg/dL POC Glucose (mg/dL) 220 H (75-99) mg/dL Hemoglobin A1c 11.2 H (4.0-6.0) % Calcium 8.0 L (8.4-10.2) mg/dL Magnesium (1.6-2.3) mg/dL AST (14-36) U/L ALT (4-34) U/L 07/29/20 07/29/20 07/29/20 Range/Units 05:25 07:21 11:56 WBC (3.8-10.6) k/uL Hct (34.0-46.0) % Neutrophils # (1.3-7.7) k/uL Lymphocytes # (1.0-4.8) k/uL ABG pH (7.35-7.45) ABG pCO2 (35-45) mmHg ABG HCO3 (21-25) mmol/L ABG Total CO2 (19-24) mmol/L ABG O2 Saturation (94-97) % Sodium (137-145) mmol/L Chloride (98-107) mmol/L Carbon Dioxide (22-30) mmol/L Creatinine (0.52-1.04) mg/dL Glucose (74-99) mg/dL POC Glucose (mg/dL) 173 H 257 H (75-99) mg/dL Hemoglobin A1c (4.0-6.0) % Calcium (8.4-10.2) mg/dL Magnesium 1.5 L (1.6-2.3) mg/dL AST (14-36) U/L ALT (4-34) U/L 07/29/20 Range/Units 16:46 WBC (3.8-10.6) k/uL Hct (34.0-46.0) % Neutrophils # (1.3-7.7) k/uL Lymphocytes # (1.0-4.8) k/uL ABG pH (7.35-7.45) ABG pCO2 (35-45) mmHg ABG HCO3 (21-25) mmol/L ABG Total CO2 (19-24) mmol/L ABG O2 Saturation (94-97) % Sodium (137-145) mmol/L Chloride (98-107) mmol/L Carbon Dioxide (22-30) mmol/L Creatinine (0.52-1.04) mg/dL Glucose (74-99) mg/dL POC Glucose (mg/dL) 229 H (75-99) mg/dL Hemoglobin A1c (4.0-6.0) % Calcium (8.4-10.2) mg/dL Magnesium (1.6-2.3) mg/dL AST (14-36) U/L ALT (4-34) U/L Assessment and Plan Assessment: S/P right radical nephrectomy, admitted to ICU postoperatively due to BiPAP requirement. On 3 L oxygen Plan: -Pain control -Ambulate -D/C Wang -repeat am labs -Ok for transfer to floor from urology standpoint
[2020-07-29 20:16] LABS: Glucose,Whole Blood 242 mg/dL (75-99)
[2020-07-29] MEDS: ATORVASTATIN 20 MG TAB PO SCH (20:48)
[2020-07-29] MEDS: ARIPiprazole 10 MG TAB PO SCH (20:58)
--- NOTE | 2020-07-29 21:08 | P.CONS ---
History of Present Illness - History of Present Illness This is a pleasant 60 years old female who was admitted for 7.3 cm right-sided renal mass concerning for renal cell carcinoma. Diabetes mellitus, hypertension, osteoarthritis. Also patient with history of bipolar depression and schizoaffective disorder Patient is a status post robotic-assisted right side to radical nephrectomy with lysis of adhesions. Today is postoperative day #1 Vitas looks stable. UNREMARKABLE CBC AND BMP WITH CREATININE 1.1 AND sugar is controlled. Chest x- ray low lung volume suspected interstitial pulmonary edema. CT of the abdomen and pelvis with contrast from 06/20 showing the right kidney mass. CT of the chest 06/10: Small focus of groundglass infiltrate in the region of the lingula correlated for inflammatory process. Basilar parenchymal scarring Patient is currently on sodium chloride at 1 25 mL/h and is also on metformin and Amaryl. Review of Systems CONSTITUTIONAL: No fever, no malaise, no fatigue. HEENT: No recent visual problems or hearing problems. Denied any sore throat. CARDIOVASCULAR: No orthopnea, PND, no palpitations, no syncope. PULMONARY: No shortness of breath, no cough, no hemoptysis. GASTROINTESTINAL: No diarrhea, no nausea, no vomiting, no abdominal pain. Normoactive bowel sounds. NEUROLOGICAL: No headaches, no weakness, no numbness. HEMATOLOGICAL: Denies any bleeding or petechiae. GENITOURINARY: Denies any burning micturition, frequency, or urgency. MUSCULOSKELETAL/RHEUMATOLOGICAL: Denies any joint pain, swelling, or any muscle pain. ENDOCRINE: Denies any polyuria or polydipsia. Past Medical History Past Medical History: Diabetes Mellitus, Hyperlipidemia, Hypertension, Osteoarthritis (OA) Additional Past Medical History / Comment(s): Osteoarthritis of the left hip, type II diabetes. 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 She used ERT from [id number]. History of Any Multi-Drug Resistant Organisms: None Reported Past Surgical History: Cholecystectomy, Hysterectomy Additional Past Surgical History / Comment(s): MADELINE LSO and prior right oophorectomy. Arthroscopically with torn meniscus in right knee. right ankle chip fx. Past Anesthesia/Blood Transfusion Reactions: No Reported Reaction Additional Past Alcohol Use History / Comment(s): states she smokes 1ppd refused nicotine patch - Past Family History Father Family Medical History: Myocardial Infarction (NM) Additional Family Medical History / Comment(s): Father has and patient does not know cause. Apparently mother is alive at age 81. Patient has no sisters and no brothers. Family history of bipolar. Patient has 1 daughter and 1 son. Medications and Allergies Home Medications Medication Instructions Recorded Confirmed Type ARIPiprazole [Abilify] 10 mg PO HS 07/21/19 07/28/20 History Atorvastatin [Lipitor] 20 mg PO HS 07/21/19 07/28/20 History hydroCHLOROthiazide [Hydrodiuril] 25 mg PO DAILY 07/21/19 07/28/20 History metFORMIN HCL [Glucophage] 1,000 mg PO AC-SUPPER 07/21/19 07/28/20 History Glimepiride [Amaryl] 4 mg PO AC-BRKFST 07/22/20 07/28/20 History Allergies Allergy/AdvReac Type Severity Reaction Status Date / Time No Known Allergies Allergy Verified 07/28/20 11:25 Physical Exam Vitals: Vital Signs Temp Pulse Pulse Resp BP BP Pulse Ox 07/29/20 07:00 98 21 115/66 92 L 07/29/20 06:00 93 22 111/70 94 L 07/29/20 05:00 94 17 111/63 92 L 07/29/20 04:00 98.2 F 101 H 19 112/66 91 L 07/29/20 03:00 105 H 15 113/60 90 L 07/29/20 02:00 106 H 19 110/63 93 L 07/29/20 01:00 101 H 22 155/77 92 L 07/29/20 00:00 98.0 F 110 H 24 136/83 90 L 07/28/20 23:00 108 H 11 L 125/80 92 L 07/28/20 22:00 108 H 20 119/71 89 L 07/28/20 21:00 101 H 25 H 119/62 91 L 07/28/20 20:00 98.7 F 108 H 20 121/70 89 L 07/28/20 19:00 101 H 24 125/69 93 L 07/28/20 18:50 103 H 32 H 94 L 07/28/20 18:40 106 H 20 92 L 07/28/20 18:30 101 H 26 H 93 L 07/28/20 18:20 101 H 28 H 91 L 07/28/20 18:10 97.9 F 100 27 H 129/63 89 L 07/28/20 18:00 100 18 07/28/20 17:30 99 18 119/58 95 07/28/20 17:15 102 H 18 124/70 96 07/28/20 17:00 102 H 18 124/70 92 L 07/28/20 16:30 92 18 121/71 94 L 07/28/20 16:26 94 07/28/20 16:15 94 18 116/71 94 L 07/28/20 16:06 96 07/28/20 16:00 96 18 129/69 94 L 07/28/20 15:46 97 F L 100 18 128/78 94 L 07/28/20 12:15 106 H 18 135/77 94 L 07/28/20 11:42 98.1 F 114 H 20 144/80 92 L Intake and Output 07/28/20 07/29/20 07/29/20 22:59 06:59 14:59 Intake Total 1000 1100 125 Output Total 240 405 50 Balance 760 695 75 Intake: IV 1000 1000 125 Sodium Chloride 0.9% 1, 500 1000 125 000 ml @ 125 mls/hr IV . Q8H [facility] Rx#:[id number] Oral 100 Output: Urine 240 405 50 Other: Voiding Method Indwelling Catheter Indwelling Catheter Weight 118.7 kg 121.8 kg GENERAL: The patient is alert and oriented x3, not in any acute distress. Well developed, well nourished. HEENT: Pupils are round and equally reacting to light. EOMI. No scleral icterus. No conjunctival pallor. Normocephalic, atraumatic. No pharyngeal erythema. No thyromegaly. CARDIOVASCULAR: S1 and S2 present. No murmurs, rubs, or gallops. PULMONARY: Chest is clear to auscultation, no wheezing or crackles. ABDOMEN: Soft, nontender, nondistended, normoactive bowel sounds. No palpable organomegaly. MUSCULOSKELETAL: No joint swelling or deformity. EXTREMITIES: No cyanosis, clubbing, or pedal edema. NEUROLOGICAL: Gross neurological examination did not reveal any focal deficits. SKIN: No rashes. No petechiae Results CBC & Chem 7: 07/29/20 05:25 07/29/20 05:25 Labs: Abnormal Lab Results - Last 24 Hours (Table) 07/28/20 07/28/20 07/28/20 Range/Units 11:42 13:55 16:05 WBC (3.8-10.6) k/uL Hct (34.0-46.0) % Neutrophils # (1.3-7.7) k/uL Lymphocytes # (1.0-4.8) k/uL ABG pH (7.35-7.45) ABG pCO2 (35-45) mmHg ABG HCO3 (21-25) mmol/L ABG Total CO2 (19-24) mmol/L ABG O2 Saturation (94-97) % Sodium (137-145) mmol/L Chloride (98-107) mmol/L Carbon Dioxide (22-30) mmol/L Creatinine (0.52-1.04) mg/dL Glucose (74-99) mg/dL POC Glucose (mg/dL) 285 H 306 H 324 H (75-99) mg/dL Calcium (8.4-10.2) mg/dL Magnesium (1.6-2.3) mg/dL AST (14-36) U/L ALT (4-34) U/L 07/28/20 07/28/20 07/28/20 Range/Units 17:08 18:00 18:03 WBC 17.0 H (3.8-10.6) k/uL Hct 46.1 H (34.0-46.0) % Neutrophils # 15.7 H (1.3-7.7) k/uL Lymphocytes # 0.9 L (1.0-4.8) k/uL ABG pH (7.35-7.45) ABG pCO2 (35-45) mmHg ABG HCO3 (21-25) mmol/L ABG Total CO2 (19-24) mmol/L ABG O2 Saturation (94-97) % Sodium (137-145) mmol/L Chloride (98-107) mmol/L Carbon Dioxide (22-30) mmol/L Creatinine (0.52-1.04) mg/dL Glucose (74-99) mg/dL POC Glucose (mg/dL) 308 H 314 H (75-99) mg/dL Calcium (8.4-10.2) mg/dL Magnesium (1.6-2.3) mg/dL AST (14-36) U/L ALT (4-34) U/L 07/28/20 07/28/20 07/28/20 Range/Units 18:03 18:23 19:06 WBC (3.8-10.6) k/uL Hct (34.0-46.0) % Neutrophils # (1.3-7.7) k/uL Lymphocytes # (1.0-4.8) k/uL ABG pH 7.34 L (7.35-7.45) ABG pCO2 57 H (35-45) mmHg ABG HCO3 30 H (21-25) mmol/L ABG Total CO2 18 L (19-24) mmol/L ABG O2 Saturation 92.0 L (94-97) % Sodium 136 L (137-145) mmol/L Chloride 97 L (98-107) mmol/L Carbon Dioxide (22-30) mmol/L Creatinine 1.10 H (0.52-1.04) mg/dL Glucose 331 H (74-99) mg/dL POC Glucose (mg/dL) 297 H (75-99) mg/dL Calcium (8.4-10.2) mg/dL Magnesium 1.5 L (1.6-2.3) mg/dL AST 235 H (14-36) U/L ALT 138 H (4-34) U/L 07/28/20 07/29/20 07/29/20 Range/Units 20:34 00:30 05:25 WBC (3.8-10.6) k/uL Hct (34.0-46.0) % Neutrophils # (1.3-7.7) k/uL Lymphocytes # (1.0-4.8) k/uL ABG pH (7.35-7.45) ABG pCO2 (35-45) mmHg ABG HCO3 (21-25) mmol/L ABG Total CO2 (19-24) mmol/L ABG O2 Saturation (94-97) % Sodium (137-145) mmol/L Chloride (98-107) mmol/L Carbon Dioxide 32 H (22-30) mmol/L Creatinine 1.15 H (0.52-1.04) mg/dL Glucose 178 H (74-99) mg/dL POC Glucose (mg/dL) 279 H 220 H (75-99) mg/dL Calcium 8.0 L (8.4-10.2) mg/dL Magnesium (1.6-2.3) mg/dL AST (14-36) U/L ALT (4-34) U/L 07/29/20 Range/Units 07:21 WBC (3.8-10.6) k/uL Hct (34.0-46.0) % Neutrophils # (1.3-7.7) k/uL Lymphocytes # (1.0-4.8) k/uL ABG pH (7.35-7.45) ABG pCO2 (35-45) mmHg ABG HCO3 (21-25) mmol/L ABG Total CO2 (19-24) mmol/L ABG O2 Saturation (94-97) % Sodium (137-145) mmol/L Chloride (98-107) mmol/L Carbon Dioxide (22-30) mmol/L Creatinine (0.52-1.04) mg/dL Glucose (74-99) mg/dL POC Glucose (mg/dL) 173 H (75-99) mg/dL Calcium (8.4-10.2) mg/dL Magnesium (1.6-2.3) mg/dL AST (14-36) U/L ALT (4-34) U/L Assessment and Plan Assessment: Right sided kidney mass concerning for renal cell carcinoma Acute hypoxemic hypercapnic respiratory failure suspected due to obesity hypoventilation syndrome and obstructive sleep apnea Diabetes mellitus Hypertension Osteoarthritis. History of bipolar depression and schizoaffective disorder, not an active issue. Plan: This is a pleasant 60 years old female who presented for right renal mass concerning for RCC. Continue with pain management, Continue with oxygen and bronchodilator as needed. Pulmonary consult. Hold metformin. Continue with Amaryl. continue with insulin sliding scale Labs and medication were reviewed.. Continue same treatment. Continue with symptomatic treatment. Resume home medication Monitor lytes and vitals. DVT and GI prophylaxis. Further recommendations of the clinical course of the patient DVT prophylaxis: Subcutaneous heparin GI Prophylaxis: Pepcid PT/OT: Pending Prognosis is guarded
[2020-07-30] MEDS: IPRATROPIUM-ALBUTEROL 3 ML NEB INHALATION SCH ×5 (03:17→19:56)
[2020-07-30 05:30] LABS: Basophils % (A) 0 %; Eosinophils # (A) 0.1 k/uL (0-0.7); Eosinophils % (A) 1 %; HCT 38.5 % (34.0-46.0); HGB 12.3 gm/dL (11.4-16.0); Lymphocytes # (A) 0.9 k/uL (1.0-4.8); Lymphocytes % (A) 9 %; MCH 30.7 pg (25.0-35.0); MCHC 31.9 g/dL (31.0-37.0); MCV 96.3 fL (80.0-100.0); Mean Platelet Volume 7.7; Monocytes # (A) 0.3 k/uL (0-1.0); Monocytes % (A) 3 %; Neutrophils # (A) 8.1 k/uL (1.3-7.7); Neutrophils % (A) 85 %; Platelet Count 206 k/uL (150-450); RDW 14.5 % (11.5-15.5); WBC 9.4 k/uL (3.8-10.6)
[2020-07-30 05:39] LABS: Calcium 8.2 mg/dL (8.4-10.2); Magnesium 1.9 mg/dL (1.6-2.3); Potassium 3.7 mmol/L (3.5-5.1)
[2020-07-30 07:44] LABS: Glucose,Whole Blood 207 mg/dL (75-99)
[2020-07-30] MEDS: INSULIN ASPART (NovoLOG) 100 UNIT/ML VIAL SQ SCH ×4 (07:53→21:26)
[2020-07-30] MEDS: GLIMEPIRIDE 4 MG TAB PO SCH (07:54)
[2020-07-30] MEDS: HEPARIN SODIUM,PORCINE 5,000 UNIT/ML 1 ML VIAL SQ SCH ×3 (09:31→23:06)
[2020-07-30] MEDS: SODIUM CHLORIDE 0.9% 1,000 ML IV SCH ×2 (09:31→19:21)
[2020-07-30 11:14] VITALS: BMI 45.2
--- NOTE | 2020-07-30 11:22 | P.PN ---
Subjective Progress Note Date: 07/30/20 Principal diagnosis: Postoperative hypoxic and hypercapnic respiratory failure This is a 60-year-old female, recently discovered to have a 7.3 cm right sided adrenal mass concerning for renal cell carcinoma. Patient underwent robotic- assisted right sided radical nephrectomy and lyses of adhesions yesterday. However post extubation, patient required to be placed on BiPAP, and could not be switched to a nasal cannula. Multiple attempts were made in the recovery room, then I was notified by the surgeon about this concern, I recommended that the patient remains on BiPAP, recommended transferring the patient to the ICU, and to hold Robaxin, continue Dilaudid. Overnight the patient was placed on BiPAP at 15/5 and 40% FiO2. Patient did extremely well through the night, and after I evaluated the patient this morning, I switch her to a nasal cannula at 2 L. And Her O2 saturation just above 90%. Patient is morbidly obese, she has history of chronic cough for the last 6 months, she has been a 15-oyli-rzzh smoker but she quit smoking about 5 years ago. No documented history of obstructive sleep apnea no previous sleep study, patient is being evaluated on outpatient basis for a 6 month history of cough, and workup is pending supposed to have a full PFT in the next few weeks. Patient is known to have history of obesity, diabetes, dyslipidemia, hypertension, degenerative joint disease, bipolar disorder. Reevaluated today on 07/30/20, patient remains as an overflow in the ICU. Patient is doing great, asymptomatic. Denies any cough no wheezing no shortness of breath. Patient is now at 2 L nasal cannula, she had a low-grade temp of 100.2 yesterday. Chest x-ray showed minimal bibasilar atelectasis. Patient is compliant with her incentive spirometry, and she is becoming more active. IV fluids have been discontinued, and I still plan to transfer the patient to a regular medical floor today, possible discharge planning in the next 24-48 hours once cleared by urology. CBC is normal index was abnormal renal profile showed slight rise in creatinine to 1.22, baseline is 1.10 before her nephrectomy. Objective - Vital Signs Vital signs: Vital Signs Temp 100.2 F H 07/30/20 08:00 Pulse 102 H 07/30/20 11:15 Resp 15 07/30/20 08:00 BP 131/63 07/30/20 08:00 Pulse Ox 89 L 07/30/20 00:00 Intake & Output 07/29/20 07/30/20 07/30/20 18:59 06:59 18:59 Intake Total 1450 200 360 Output Total 405 Balance 1045 200 360 Weight 123.3 kg 123.3 kg Intake: IV 1450 200 160 Magnesium Sulfate-D5w Pmx 200 1 gm In Dextrose/Water 1 100ml.bag @ 100 mls/hr IVPB Q1H [facility] Rx#: [id number] Sodium Chloride 0.9% 1, 1250 200 160 000 ml @ 125 mls/hr IV . Q8H [facility] Rx#:[id number] Oral 200 Output: Urine 405 Other: Voiding Method Indwelling Catheter Indwelling Catheter Toilet # Voids 0 3 2 - Exam Physical Exam: Revealed 60-year-old female in no distress. On 2 L nasal cannula. Head: Atraumatic, normocephalic. HEENT:[Neck is supple.] [No neck masses.] [No thyromegaly.] [No JVD.] Mallampati class III. Chest: [Symmetrical chest expansion, diminished at the bases no rhonchi and no wheezes Cardiac Exam: Distant S1 and S2. no S3 gallop, no murmur.] Abdomen: Obese, [Soft, nontender, no megaly, no rebound, no guarding, normal bowel sounds.] Extremities: [No clubbing, no edema, no cyanosis.] Good pulses bilaterally. Neurological Exam: [No focal neurologic deficit.] Alert oriented 3 focal deficits. Psychiatric: Normal mood affect and normal mental status examination. Skin: No rashes. Musculoskeletal no deformities noted limitation range of motion. Lymphatics: No lymphadenopathy cervical or supraclavicular - Labs CBC & Chem 7: 07/30/20 04:49 07/30/20 04:49 Labs: Abnormal Lab Results - Last 24 Hours (Table) 07/29/20 07/29/20 07/29/20 Range/Units 05:25 11:56 16:46 Neutrophils # (1.3-7.7) k/uL Lymphocytes # (1.0-4.8) k/uL Sodium (137-145) mmol/L Creatinine (0.52-1.04) mg/dL Glucose (74-99) mg/dL POC Glucose (mg/dL) 257 H 229 H (75-99) mg/dL Hemoglobin A1c 11.2 H (4.0-6.0) % Calcium (8.4-10.2) mg/dL 07/29/20 07/30/20 07/30/20 Range/Units 20:15 04:49 04:49 Neutrophils # 8.1 H (1.3-7.7) k/uL Lymphocytes # 0.9 L (1.0-4.8) k/uL Sodium 135 L (137-145) mmol/L Creatinine 1.22 H (0.52-1.04) mg/dL Glucose 230 H (74-99) mg/dL POC Glucose (mg/dL) 242 H (75-99) mg/dL Hemoglobin A1c (4.0-6.0) % Calcium 8.2 L (8.4-10.2) mg/dL 07/30/20 Range/Units 07:43 Neutrophils # (1.3-7.7) k/uL Lymphocytes # (1.0-4.8) k/uL Sodium (137-145) mmol/L Creatinine (0.52-1.04) mg/dL Glucose (74-99) mg/dL POC Glucose (mg/dL) 207 H (75-99) mg/dL Hemoglobin A1c (4.0-6.0) % Calcium (8.4-10.2) mg/dL Assessment and Plan Assessment: Impression: Status post right sided robotic-assisted nephrectomy postoperative day #2 Postoperative hypoxic and hypercapnic respiratory failure, unexpected, mostly related to obesity/hypoventilation syndrome and obstructive sleep apnea syndrome is strongly suspected. With postoperative atelectasis. Suspect some component of COPD, likely mild considering the patient had a 50-fgrb-viah smoking history. Again doubt being active COPD. Obstructive sleep apnea syndrome is strongly suspected, patient will need to have outpatient sleep study. Morbid obesity. Type 2 diabetes. Degenerative joint disease Benign essential hypertension History of bipolar disorder. Ex-smoker, quit smoking 5 years ago. chronic cough, being investigated on outpatient basis. Recommendation: Titrate oxygen, and placed on room air if she could tolerate with O2 saturation above or equal to 90%. May use BiPAP only at sleep time Incentive spirometry. To be continued. Continues to ambulate [facility] 4 times a day and when necessary. Outpatient follow-up regarding chronic cough obstructive sleep apnea and possible component of COPD. Patient will likely benefit from having a sleep study on outpatient basis. And will definitely need a full PFT. Transfer out of the ICU once a bed is available. No need for telemetry Will follow. Time with Patient: Less than 30
[2020-07-30 11:45] LABS: Glucose,Whole Blood 307 mg/dL (75-99)
[2020-07-30] MEDS: methocarbamoL 750 MG TAB PO SCH ×4 (11:58→21:31)
[2020-07-30 16:41] LABS: Glucose,Whole Blood 169 mg/dL (75-99)
--- NOTE | 2020-07-30 18:16 | P.PN ---
Subjective This is a pleasant 60 years old female who was admitted for 7.3 cm right-sided renal mass concerning for renal cell carcinoma. Diabetes mellitus, h ypertension, osteoarthritis. Also patient with history of bipolar depression and schizoaffective disorder Patient is a status post robotic-assisted right side to radical nephrectomy with lysis of adhesions. Today is postoperative day #1 Vitas looks stable. UNREMARKABLE CBC AND BMP WITH CREATININE 1.1 AND sugar is controlled. Chest x- ray low lung volume suspected interstitial pulmonary edema. CT of the abdomen and pelvis with contrast from 06/20 showing the right kidney mass. CT of the chest 06/10: Small focus of groundglass infiltrate in the region of the lingula correlated for inflammatory process. Basilar parenchymal scarring Patient is currently on sodium chloride at 1 25 mL/h and is also on metformin and Amaryl. 07/30/20 Patient is awake and remains in the ICU for close monitoring now but she selective overflow. Patient has no dyspnea or coughing or chest pain. She saturating 92% on 2 L oxygen via nasal cannula, Wang catheter was discontinued per urology service recommendation and patient is able to be with no problem, she denies urgency or increased frequency or burning patient is hemodynamically stable. Patient is requesting to move around. Her vertical wound on the right side and 2 puncture wounds look so close, dry and healing Review of Systems CONSTITUTIONAL: No fever, no malaise, no fatigue. HEENT: No recent visual problems or hearing problems. Denied any sore throat. CARDIOVASCULAR: No orthopnea, PND, no palpitations, no syncope. PULMONARY: No shortness of breath, no cough, no hemoptysis. GASTROINTESTINAL: No diarrhea, no nausea, no vomiting, no abdominal pain. Normoactive bowel sounds. NEUROLOGICAL: No headaches, no weakness, no numbness. HEMATOLOGICAL: Denies any bleeding or petechiae. GENITOURINARY: Denies any burning micturition, frequency, or urgency. MUSCULOSKELETAL/RHEUMATOLOGICAL: Denies any joint pain, swelling, or any muscle pain. ENDOCRINE: Denies any polyuria or polydipsia. Objective - Vital Signs Vital signs: Vital Signs Temp 98.4 F 07/30/20 16:00 Pulse 80 07/30/20 16:00 Resp 15 07/30/20 16:00 BP 130/70 07/30/20 16:00 Pulse Ox 92 L 07/30/20 12:04 Intake & Output 07/29/20 07/30/20 07/30/20 18:59 06:59 18:59 Intake Total 1450 200 560 Output Total 405 Balance 1045 200 560 Weight 123.3 kg 123.3 kg Intake: IV 1450 200 160 Magnesium Sulfate-D5w Pmx 200 1 gm In Dextrose/Water 1 100ml.bag @ 100 mls/hr IVPB Q1H [facility] Rx#: [id number] Sodium Chloride 0.9% 1, 1250 200 160 000 ml @ 125 mls/hr IV . Q8H [facility] Rx#:[id number] Oral 400 Output: Urine 405 Other: Voiding Method Indwelling Catheter Indwelling Catheter Toilet # Voids 0 3 3 - Exam GENERAL: The patient is alert and oriented x3, not in any acute distress. Obese HEENT: Pupils are round and equally reacting to light. EOMI. No scleral icterus. No conjunctival pallor. Normocephalic, atraumatic. No pharyngeal erythema. No thyromegaly. CARDIOVASCULAR: S1 and S2 present. No murmurs, rubs, or gallops. PULMONARY: Chest is clear to auscultation, no wheezing or crackles. ABDOMEN: Soft, nontender, nondistended, normoactive bowel sounds. No palpable organomegaly. MUSCULOSKELETAL: No joint swelling or deformity. EXTREMITIES: No cyanosis, clubbing, or pedal edema. NEUROLOGICAL: Gross neurological examination did not reveal any focal deficits. SKIN: No rashes. no petechiae. - Labs CBC & Chem 7: 07/30/20 04:49 07/30/20 04:49 Labs: Abnormal Lab Results - Last 24 Hours (Table) 07/29/20 07/30/20 07/30/20 Range/Units 20:15 04:49 04:49 Neutrophils # 8.1 H (1.3-7.7) k/uL Lymphocytes # 0.9 L (1.0-4.8) k/uL Sodium 135 L (137-145) mmol/L Creatinine 1.22 H (0.52-1.04) mg/dL Glucose 230 H (74-99) mg/dL POC Glucose (mg/dL) 242 H (75-99) mg/dL Calcium 8.2 L (8.4-10.2) mg/dL 07/30/20 07/30/2007/30/20 Range/Units 07:43 11:44 16:40 Neutrophils # (1.3-7.7) k/uL Lymphocytes # (1.0-4.8) k/uL Sodium (137-145) mmol/L Creatinine (0.52-1.04) mg/dL Glucose (74-99) mg/dL POC Glucose (mg/dL) 207 H 307 H 169 H (75-99) mg/dL Calcium (8.4-10.2) mg/dL Assessment and Plan Assessment: Right sided kidney mass concerning for renal cell carcinoma Acute hypoxemic hypercapnic respiratory failure suspected due to obesity hypoventilation syndrome and obstructive sleep apnea Diabetes mellitus Hypertension Osteoarthritis. History of bipolar depression and schizoaffective disorder, not an active issue. Plan: This is a pleasant 60 years old female who presented for right renal mass concerning for RCC. Continue with pain management, Continue with oxygen and bronchodilator as needed. Pulmonary consult. Hold metformin. Continue with Amaryl. continue with insulin sliding scale Labs and medication were reviewed.. Continue same treatment. Continue with symptomatic treatment. Resume home medication Monitor lytes and vitals. DVT and GI prophylaxis. Further recommendations of the clinical course of the patient DVT prophylaxis: Subcutaneous heparin GI Prophylaxis: Pepcid PT/OT: Pending Prognosis is guarded
--- NOTE | 2020-07-30 19:23 | P.PN ---
Subjective Progress Note Date: 07/30/20 Principal diagnosis: Right renal mass Postoperative day #2 status post right radical nephrectomy, patient admitted to the ICU postoperatively due to BiPAP requirement. This am on evaluation she is on 2 L of oxygen, no respiratory distress. Her pain is controlled she is tolerating a diet has been out of bed into chair Objective - Vital Signs Vital signs: Vital Signs Temp 98.4 F 07/30/20 16:00 Pulse 80 07/30/20 16:00 Resp 15 07/30/20 16:00 BP 130/70 07/30/20 16:00 Pulse Ox 92 L 07/30/20 12:04 Intake & Output 07/30/20 07/30/20 07/31/20 06:59 18:59 06:59 Intake Total 200 560 Balance 200 560 Weight 123.3 kg 123.3 kg Intake: IV 200 160 Sodium Chloride 0.9% 1, 200 160 000 ml @ 125 mls/hr IV . Q8H [facility] Rx#:[id number] Oral 400 Other: Voiding Method Indwelling Catheter Toilet # Voids 3 3 - Constitutional General appearance: Present: no acute distress - Gastrointestinal General gastrointestinal: Present: soft. Absent: distended, rigid - Psychiatric Psychiatric: Present: A&O x's 3 - Labs CBC & Chem 7: 07/30/20 04:49 07/30/20 04:49 Labs: Abnormal Lab Results - Last 24 Hours (Table) 07/29/20 07/30/20 07/30/20 Range/Units 20:15 04:49 04:49 Neutrophils # 8.1 H (1.3-7.7) k/uL Lymphocytes # 0.9 L (1.0-4.8) k/uL Sodium 135 L (137-145) mmol/L Creatinine 1.22 H (0.52-1.04) mg/dL Glucose 230 H (74-99) mg/dL POC Glucose (mg/dL) 242 H (75-99) mg/dL Calcium 8.2 L (8.4-10.2) mg/dL 07/30/20 07/30/20 07/30/20 Range/Units 07:43 11:44 16:40 Neutrophils # (1.3-7.7) k/uL Lymphocytes # (1.0-4.8) k/uL Sodium (137-145) mmol/L Creatinine (0.52-1.04) mg/dL Glucose (74-99) mg/dL POC Glucose (mg/dL) 207 H 307 H 169 H (75-99) mg/dL Calcium (8.4-10.2) mg/dL Assessment and Plan Assessment: S/P right radical nephrectomy, admitted to ICU postoperatively due to BiPAP requirement. On 2 L oxygen this am Plan: -Pain control -Ambulate -repeat am labs -possible discharge home tomorrow if of oxygen
[2020-07-30 20:18] LABS: Glucose,Whole Blood 196 mg/dL (75-99)
[2020-07-30 20:38] VITALS: RESP 20
[2020-07-30] MEDS: ATORVASTATIN 20 MG TAB PO SCH (21:25)
[2020-07-30] MEDS: INSULIN DETEMIR (LEVEMIR) 100 UNIT/ML SYR SQ SCH (21:31)
[2020-07-30] MEDS: ARIPiprazole 10 MG TAB PO SCH (21:31)
[2020-07-30] MEDS ORDERED: IPRATROPIUM-ALBUTEROL 3 ML NEB INHALATION PRN (21:33)
[2020-07-31 06:55] LABS: HCT 37.9 % (34.0-46.0); HGB 11.9 gm/dL (11.4-16.0); Hypochromasia Slight; MCH 30.5 pg (25.0-35.0); MCHC 31.4 g/dL (31.0-37.0); Mean Platelet Volume 7.5; Platelet Count 219 k/uL (150-450); RBC 3.91 m/uL (3.80-5.40); RDW 14.5 % (11.5-15.5); WBC 8.8 k/uL (3.8-10.6)
[2020-07-31 07:05] LABS: Glucose,Whole Blood 218 mg/dL (75-99)
[2020-07-31 07:10] LABS: Calcium 8.3 mg/dL (8.4-10.2); Potassium 4.1 mmol/L (3.5-5.1)
[2020-07-31] MEDS: IPRATROPIUM-ALBUTEROL 3 ML NEB INHALATION SCH ×3 (07:10→15:25)
[2020-07-31] MEDS: HEPARIN SODIUM,PORCINE 5,000 UNIT/ML 1 ML VIAL SQ SCH ×2 (07:29→17:28)
[2020-07-31] MEDS: INSULIN ASPART (NovoLOG) 100 UNIT/ML VIAL SQ SCH ×3 (07:29→17:23)
[2020-07-31] MEDS: GLIMEPIRIDE 4 MG TAB PO SCH (07:29)
[2020-07-31] MEDS ORDERED: LINAGLIPTIN 5 MG TABLET PO SCH ×2 (09:00)
[2020-07-31] MEDS: methocarbamoL 750 MG TAB PO SCH ×3 (10:12→17:28)
[2020-07-31 11:22] LABS: Glucose,Whole Blood 283 mg/dL (75-99)
--- NOTE | 2020-07-31 11:53 | P.PN ---
Subjective Progress Note Date: 07/31/20 Principal diagnosis: Postoperative hypoxemic/hypercapnic respiratory failure This is a 60-year-old female, recently discovered to have a 7.3 cm right sided adrenal mass concerning for renal cell carcinoma. Patient underwent robotic- assisted right sided radical nephrectomy and lyses of adhesions yesterday. However post extubation, patient required to be placed on BiPAP, and could not be switched to a nasal cannula. Multiple attempts were made in the recovery room, then I was notified by the surgeon about this concern, I recommended that the patient remains on BiPAP, recommended transferring the patient to the ICU, and to hold Robaxin, continue Dilaudid. Overnight the patient was placed on BiPAP at 15/5 and 40% FiO2. Patient did extremely well through the night, and after I evaluated the patient this morning, I switch her to a nasal cannula at 2 L. And Her O2 saturation just above 90%. Patient is morbidly obese, she has history of chronic cough for the last 6 months, she has been a [id number] smoker but she quit smoking about 5 years ago. No documented history of obstructive sleep apnea no previous sleep study, patient is being evaluated on outpatient basis for a 6 month history of cough, and workup is pending supposed to have a full PFT in the next few weeks. Patient is known to have history of obesity, diabetes, dyslipidemia, hypertension, degenerative joint disease, bipolar disorder. Reevaluated today on 07/30/20, patient remains as an overflow in the ICU. Patient is doing great, asymptomatic. Denies any cough no wheezing no shortness of br eath. Patient is now at 2 L nasal cannula, she had a low-grade temp of 100.2 yesterday. Chest x-ray showed minimal bibasilar atelectasis. Patient is compliant with her incentive spirometry, and she is becoming more active. IV fluids have been discontinued, and I still plan to transfer the patient to a regular medical floor today, possible discharge planning in the next 24-48 hours once cleared by urology. CBC is normal index was abnormal renal profile showed slight rise in creatinine to 1.22, baseline is 1.10 before her nephrectomy. The patient is seen today 07/31/2020 in follow-up on the regular medical floor. She is currently resting comfortably in bed. Awake and alert in no acute distress. Denies any worsening shortness of breath, cough or congestion. She is maintaining O2 saturations in the low 90s on 1 L/m per nasal cannula. She's been afebrile. Hemodynamically stable. White count 8.8. Hemoglobin 11.9. Sodium 138. Potassium 4.1. Creatinine 1.08. Continue bronchodilators. Working well with the incentive spirometer. Objective - Vital Signs Vital signs: Vital Signs Temp 97.8 F 07/31/20 05:20 Pulse 92 07/31/20 11:14 Resp 20 07/31/20 05:20 BP 124/77 07/31/20 05:20 Pulse Ox 92 L 07/31/20 05:20 Intake & Output 07/30/20 07/31/20 07/31/20 18:59 06:59 18:59 Intake Total 560 Balance 560 Weight 123.3 kg Intake: IV 160 Sodium Chloride 0.9% 1, 160 000 ml @ 125 mls/hr IV . Q8H [facility] Rx#:[id number] Oral 400 Other: Voiding Method Toilet Toilet Toilet # Voids 3 2 # Emeses 1 - Exam Physical Exam: Revealed a morbidly obese pleasant 60-year-old female in no distress. On 1 L nasal cannula. Head: Atraumatic, normocephalic. HEENT:[Neck is supple.] [No neck masses.] [No thyromegaly.] [No JVD.] Mallampati class III. Chest: [Symmetrical chest expansion, faint crackles, diminished at the bases no rhonchi and no wheezes Cardiac Exam: Distant S1 and S2. no S3 gallop, no murmur.] Abdomen: Obese, [Soft, nontender, no megaly, no rebound, no guarding, normal bowel sounds.] Extremities: [No clubbing, no edema, no cyanosis.] Good pulses bilaterally. Neurological Exam: [No focal neurologic deficit.] Alert oriented 3 focal deficits. Psychiatric: Normal mood affect and normal mental status examination. Skin: No rashes. Musculoskeletal no deformities noted limitation range of motion. Lymphatics: No lymphadenopathy cervical or supraclavicular - Labs CBC & Chem 7: 07/31/20 06:22 07/31/20 06:22 Labs: Abnormal Lab Results - Last 24 Hours (Table) 07/30/20 07/30/20 07/30/20 Range/Units 11:44 16:40 20:17 Carbon Dioxide (22-30) mmol/L Creatinine (0.52-1.04) mg/dL Glucose (74-99) mg/dL POC Glucose (mg/dL) 307 H 169 H 196 H (75-99) mg/dL Calcium (8.4-10.2) mg/dL 07/31/20 07/31/20 07/31/20 Range/Units 06:22 07:04 11:21 Carbon Dioxide 33 H (22-30) mmol/L Creatinine 1.08 H (0.52-1.04) mg/dL Glucose 219 H (74-99) mg/dL POC Glucose (mg/dL) 218 H 283 H (75-99) mg/dL Calcium 8.3 L (8.4-10.2) mg/dL Assessment and Plan Assessment: Status post right sided robotic-assisted nephrectomy postoperative day #3 Postoperative hypoxic and hypercapnic respiratory failure, unexpected, mostly related to obesity/hypoventilation syndrome and obstructive sleep apnea syndrome is strongly suspected. With postoperative atelectasis. Suspect some component of COPD, likely mild considering the patient had a [id number] smoking history. Again doubt being active COPD. Obstructive sleep apnea syndrome is strongly suspected, patient will need to have outpatient sleep study. Morbid obesity Type 2 diabetes. Degenerative joint disease Benign essential hypertension History of bipolar disorder. Ex-smoker, quit smoking 5 years ago. chronic cough, being investigated on outpatient basis. Plan: The patient was seen and evaluated by Dr. Tran She may require home oxygen for 1-2 weeks' Continue bronchodilators Continue the incentive spirometer Probable obstructive sleep apnea needs to be worked up in the outpatient setting Home once cleared by nephrology. I, the cosigning physician, performed a history & physical examination of the patient. Lungs sounds with faint crackles in the bilateral posterior bases. Maintaining good O2 saturations in the 90s on 1 L/m per nasal canula I discussed the assessment and plan of care with my nurse practitioner, Ana Calvillo. I attest to the above note as dictated by her.
[2020-07-31 12:35] VITALS: BP 101/55; TEMP 99
--- NOTE | 2020-07-31 12:42 | P.DS ---
Providers Date of admission: 07/28/20 10:45 Attending physician: Juliocesar Sanford MD Consults: 07/28/20 17:30 Consult Physician Urgent Consulting Provider: Ronald Tran Consult Reason/Comments: ACUTE POST OP RESP ISSUES Do you want consulting provider notified?: Yes 07/28/20 18:32 Consult Physician Stat Consulting Provider: Glynn Venegas Consult Reason/Comments: Hospital management Do you want consulting provider notified?: Already Contacted Primary care physician: [facility] Course: Ms Forbes is a 60 yo female with hx of right sided renal mass, she underwent a robotic assisted nephrectomy on 07/28/20, no complication during surgery, please see op note dated 07/27 for surgery details. Post operatively patient required BiPaP and was admitted to the ICU for close monitoring. Pulmonology was consulted during her admission. becerra was removed on POD #1 .She was transfered to the GPU on POD #2. She was discharged home on POD #3, at time of discharge she was tolerating a diet, ambulating and pain was controlled. She was discharged home on an oxygen script. Plan - Discharge Summary Discharge Rx Participant: Yes New Discharge Prescriptions: New methocarbamoL [Robaxin] 750 mg PO TID #21 tab traMADol HCL [Ultram] 50 mg PO Q6HR PRN 3 Days #12 tab PRN Reason: Pain No Action metFORMIN HCL [Glucophage] 1,000 mg PO AC-SUPPER hydroCHLOROthiazide [Hydrodiuril] 25 mg PO DAILY Atorvastatin [Lipitor] 20 mg PO HS ARIPiprazole [Abilify] 10 mg PO HS Glimepiride [Amaryl] 4 mg PO AC-BRKFST Discharge Medication List ARIPiprazole [Abilify] 10 mg PO HS 07/21/19 [History] Atorvastatin [Lipitor] 20 mg PO HS 07/21/19 [History] hydroCHLOROthiazide [Hydrodiuril] 25 mg PO DAILY 07/21/19 [History] metFORMIN HCL [Glucophage] 1,000 mg PO AC-SUPPER 07/21/19 [History] Glimepiride [Amaryl] 4 mg PO AC-BRKFST 07/22/20 [History] methocarbamoL [Robaxin] 750 mg PO TID #21 tab 07/31/20 [Rx] traMADol HCL [Ultram] 50 mg PO Q6HR PRN 3 Days #12 tab 07/31/20 [Rx] Follow up Appointment(s)/Referral(s): Ronald Tran MD [STAFF PHYSICIAN] - 2 Weeks (for pulmonary function test as outpatient) Nikita Rose MD [REFERRING] - 1 Week (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
[2020-07-31 15:36] VITALS: PULSE 96
[2020-07-31 17:07] LABS: Glucose,Whole Blood 130 mg/dL (75-99)
--- NOTE | 2020-07-31 17:49 | P.PN ---
Subjective This is a pleasant 60 years old female who was admitted for 7.3 cm right-sided renal mass concerning for renal cell carcinoma. Diabetes mellitus, h ypertension, osteoarthritis. Also patient with history of bipolar depression and schizoaffective disorder Patient is a status post robotic-assisted right side to radical nephrectomy with lysis of adhesions. Today is postoperative day #1 Vitas looks stable. UNREMARKABLE CBC AND BMP WITH CREATININE 1.1 AND sugar is controlled. Chest x- ray low lung volume suspected interstitial pulmonary edema. CT of the abdomen and pelvis with contrast from 06/20 showing the right kidney mass. CT of the chest 06/10: Small focus of groundglass infiltrate in the region of the lingula correlated for inflammatory process. Basilar parenchymal scarring Patient is currently on sodium chloride at 1 25 mL/h and is also on metformin and Amaryl. 07/30/20 Patient is awake and remains in the ICU for close monitoring now but she selective overflow. Patient has no dyspnea or coughing or chest pain. She saturating 92% on 2 L oxygen via nasal cannula, Wang catheter was discontinued per urology service recommendation and patient is able to be with no problem, she denies urgency or increased frequency or burning patient is hemodynamically stable. Patient is requesting to move around. Her vertical wound on the right side and 2 puncture wounds look so close, dry and healing 07/31/20 Patient is awake and alert, no specific complaints, no chest pain or dyspnea, no abdominal pain, not complaints about her bowel movements are voiding ability, no fever Sugar is better controlled, her creatinine is trending down to 1.0. Still recommended to hold metformin given her kidney problems and renal system illness which might drop her creatinine up, we recommend to continue with the glipizide and the nicotine 2.5 mg which can be increased to 5 mg, as he needed more units of short-acting insulin Patient site within one week and she was instructed with the same Objective - Vital Signs Vital signs: Vital Signs Temp 99.0 F 07/31/20 12:34 Pulse 96 07/31/20 15:36 Resp 20 07/31/20 12:34 BP 101/55 07/31/20 12:34 Pulse Ox 84 L 07/31/20 12:44 Intake & Output 07/30/20 07/31/20 07/31/20 18:59 06:59 18:59 Intake Total 560 150 Balance 560 150 Weight 123.3 kg Intake: IV 160 Sodium Chloride 0.9% 1, 160 000 ml @ 125 mls/hr IV . Q8H [facility] Rx#:[id number] Oral 400 150 Other: Voiding Method Toilet Toilet Toilet # Voids 3 2 # Emeses 1 - Exam GENERAL: The patient is alert and oriented x3, not in any acute distress. Obese HEENT: Pupils are round and equally reacting to light. EOMI. No scleral icterus. No conjunctival pallor. Normocephalic, atraumatic. No pharyngeal erythema. No thyromegaly. CARDIOVASCULAR: S1 and S2 present. No murmurs, rubs, or gallops. PULMONARY: Chest is clear to auscultation, no wheezing or crackles. ABDOMEN: Soft, nontender, nondistended, normoactive bowel sounds. No palpable organomegaly. MUSCULOSKELETAL: No joint swelling or deformity. EXTREMITIES: No cyanosis, clubbing, or pedal edema. NEUROLOGICAL: Gross neurological examination did not reveal any focal deficits. SKIN: No rashes. no petechiae. - Labs CBC & Chem 7: 07/31/20 06:22 07/31/20 06:22 Labs: Abnormal Lab Results - Last 24 Hours (Table) 07/30/20 07/31/20 07/31/20 Range/Units 20:17 06:22 07:04 Carbon Dioxide 33 H (22-30) mmol/L Creatinine 1.08 H (0.52-1.04) mg/dL Glucose 219 H (74-99) mg/dL POC Glucose (mg/dL) 196 H 218 H (75-99) mg/dL Calcium 8.3 L (8.4-10.2) mg/dL 07/31/20 07/31/20 Range/Units 11:21 17:05 Carbon Dioxide (22-30) mmol/L Creatinine (0.52-1.04) mg/dL Glucose (74-99) mg/dL POC Glucose (mg/dL) 283 H 130 H (75-99) mg/dL Calcium (8.4-10.2) mg/dL Assessment and Plan Assessment: Right sided kidney mass concerning for renal cell carcinoma Acute hypoxemic hypercapnic respiratory failure suspected due to obesity hypoventilation syndrome and obstructive sleep apnea Diabetes mellitus Hypertension Osteoarthritis. History of bipolar depression and schizoaffective disorder, not an active issue. Plan: This is a pleasant 60 years old female who presented for right renal mass co ncerning for RCC. Continue with pain management, Continue with oxygen and bronchodilator as needed. Pulmonary consult. Hold metformin. Continue with Amaryl. And the nicotine 5 mg daily. We will k eep following continue with insulin sliding scale Labs and medication were reviewed.. Continue same treatment. Continue with symptomatic treatment. Resume home medication Monitor lytes and vitals. DVT and GI prophylaxis. Further recommendations of the clinical course of the patient. We will follow up with you and the patient DVT prophylaxis: Subcutaneous heparin GI Prophylaxis: Ranjith thank you for consulting us
[2020-08-01] MEDS ORDERED: LINAGLIPTIN 5 MG TABLET PO SCH (09:00)
== END 2020-07-31 19:17 | disposition home or self-care (01) | DRG 656 ==
LOC: 2ORMAIN 10:45 → 2SICU 17:38 → 6NMEDSUR 07-30 18:58
PROVIDERS: ADMIT Urology; ATTEND Urology
PROC: 5A09457 Assistance with Respiratory Ventilation, 24-96 Consecutive Hours, Continuous Positive Airway Pressure (ICD-10-PCS; 2020-07-28)
PROC: 8E0W4CZ Robotic Assisted Procedure of Trunk Region, Percutaneous Endoscopic Approach (ICD-10-PCS; 2020-07-28)
PROC: 0TT04ZZ Resection of Right Kidney, Percutaneous Endoscopic Approach (ICD-10-PCS; principal; 2020-07-28 12:00)
DX: C64.1 Malignant neoplasm of right kidney, except renal pelvis (principal); J96.02 Acute respiratory failure with hypercapnia; J96.01 Acute respiratory failure with hypoxia; E66.2 Morbid (severe) obesity with alveolar hypoventilation; F31.30 Bipolar disorder, current episode depressed, mild or moderate severity, unspecified; J98.11 Atelectasis; Z68.42 Body mass index [BMI] 45.0-49.9, adult; E11.9 Type 2 diabetes mellitus without complications; E78.5 Hyperlipidemia, unspecified; F25.9 Schizoaffective disorder, unspecified; I10 Essential (primary) hypertension; M16.12 Unilateral primary osteoarthritis, left hip; Z79.84 Long term (current) use of oral hypoglycemic drugs; Z79.899 Other long term (current) drug therapy; Z82.49 Family history of ischemic heart disease and other diseases of the circulatory system; Z87.891 Personal history of nicotine dependence; Z90.710 Acquired absence of both cervix and uterus; Z90.721 Acquired absence of ovaries, unilateral
CPT/HCPCS: 36600; 64488; 71045; 80048; 80053; 82805; 83036; 83735; 84100; 85025; 85027; 86850; 86900; 86901; 88305; 88307; 94002; 94640; 94660

== ENCOUNTER → 2021-01-31 | Outpatient (CLI) | payer MEDICARE ==
--- NOTE | 2021-01-31 10:24 | XR ---
EXAMINATION TYPE: XR chest 2V DATE OF EXAM: 01/31/2021 COMPARISON: Chest x-ray 07/28/2020, CT abdomen 01/31/2021 HISTORY: Renal cancer TECHNIQUE: Frontal and lateral views of the chest are obtained. FINDINGS: Some patchy basilar density is present along the right hemidiaphragm, right hemidiaphragm remains elevated, improved aeration at the left lung base, no pleural effusion or pneumothorax seen. Apical pleural thickening shows a stable appearance. The cardiac silhouette size is within normal drummond its. The osseous structures are intact. IMPRESSION: Correlate for basilar atelectasis, scarring, right lower lobe pneumonia not excluded.
--- NOTE | 2021-01-31 10:52 | CT ---
EXAMINATION TYPE: CT abdomen wo con DATE OF EXAM: 01/31/2021 COMPARISON: CT abdomen pelvis 06/20/2020 HISTORY: Renal cancer CT DLP: 878 mGycm Automated exposure control for dose reduction was used. TECHNIQUE: Helical acquisition of images was performed from the lung bases through the top of iliac crest to include entire abdomen. Patient received oral contrast only CONTRAST: Performed with Oral Contrast and without IV contrast. FINDINGS: There is some coronary artery calcifications present, small hiatal hernia. Lack of contrast may decrease sensitivity. LUNG BASES: Some minimal increased attenuation present along the right hemidiaphragm is again noted, some minimal air bronchograms are present which may reflect scarring rather than pneumonia or atelect asis, similar to prior exam. LIVER/GB: Patient is post cholecystectomy. The liver is enlarged. Focal low attenuation area adjacent to the gallbladder fossa, axial image 34 within the liver is likely present on prior exam PANCREAS: No significant abnormality is seen. SPLEEN: No significant abnormality is seen. ADRENALS: No significant abnormality is seen. KIDNEYS: Right kidney is absent, left kidney is measuring approximately 11.8 cm, no hydronephrosis or evident pathologic calcification. Post op changes. BOWEL: No significant abnormality is seen. LYMPH NODES: No significant abnormality is appreciated. OSSEOUS STRUCTURES: Degenerative disk disease at L5-S1, facet arthropathy. FREE AIR: No Free Air visible ASCITES: None visible. RETROPERITONEAL ADENOPATHY: No Retroperitoneal Adenopathy visible. OTHER: IMPRESSION: POSTOP CHANGES
== END ==
LOC: RADCTMAIN 08:51
PROVIDERS: ATTEND Urology
DX: C64.9 Malignant neoplasm of unspecified kidney, except renal pelvis (principal)
CPT/HCPCS: 71046; 74150

== ENCOUNTER → 2022-04-13 | Outpatient (CLI) | payer MEDICARE ==
--- NOTE | 2022-04-13 14:37 | XR ---
EXAMINATION TYPE: XR chest 2V DATE OF EXAM: 04/13/2022 COMPARISON: 01/31/2021 TECHNIQUE: PA and lateral views submitted. HISTORY: Follow-up renal cancer FINDINGS: Right basilar subsegmental consolidation similar to the prior exam. Heart prominent there is likely a degree of underlying chronic interstitial lung disease and COPD. Biapical pleural thickening. Arthro violeta of the shoulders. Hypertrophic and degenerative change of the spine. IMPRESSION: 1. Right basilar atelectasis or infiltrate stable from prior exam.
--- NOTE | 2022-04-13 14:47 | CT ---
EXAMINATION TYPE: CT abdomen pelvis wo con DATE OF EXAM: 04/13/2022 COMPARISON: 01/31/2021 HISTORY: h/o renal CA, f/u CT DLP: 2264.5 mGycm Automated exposure control for dose reduction was used. TECHNIQUE: Helical acquisition of images was performed from the lung bases through the pelvis. FINDINGS: LUNG BASES: Subsegmental linear changes at both lung bases. LIVER/GB: Postcholecystectomy changes noted. PANCREAS: No significant abnormality is seen. SPLEEN: No significant abnormality is seen. ADRENALS: No significant abnormality is seen. KIDNEYS: Right kidney is absent, left kidney is measuring approximately 11.8 cm, no hydronephrosis or evident pathologic calcification. Lack of contrast limits assessment for mass.. ADENOPATHY: None visualized. OSSEOUS STRUCTURES: Hypertrophic and degenerative changes of the spine. A faint lucencies within a c ouple vertebral segments are stable from prior exam and too small to characterize. Facet arthropathy noted. BOWEL: No significant abnormality is seen. OTHER: Atherosclerotic change of the aorta. Nonspecific vague 1.5 cm attenuation adjacent to the lowe r margin of the liver medially. Right lateral defect anterior abdominal wall likely in the basis of p rior surgery. IMPRESSION: 1. Postsurgical changes. Exam is limited by lack of contrast in assessment for mass. No obvious adeno violeta. Within the renal bed there is faint ill-defined attenuation which is too small to characterize and nonspecific. However, this was not present on the prior exam. Recommend short-term follow-up.
== END | disposition home or self-care (01) ==
LOC: RADCTMAIN 14:10
PROVIDERS: ATTEND Urology
DX: C64.1 Malignant neoplasm of right kidney, except renal pelvis (principal); R55 Syncope and collapse
CPT/HCPCS: 71046; 74176

== ENCOUNTER → 2022-07-25 | Outpatient (CLI) | payer MEDICARE | END | disposition home or self-care (01) | LOC: LABPAT 13:59 | PROVIDERS: ATTEND Orthopaedic Surgery | DX: Z22.322 Carrier or suspected carrier of Methicillin resistant Staphylococcus aureus (principal); M17.11 Unilateral primary osteoarthritis, right knee | CPT/HCPCS: 87070 ==

== ENCOUNTER 2022-07-31 08:31 | Inpatient (IN) | payer MEDICARE ==
[2022-07-26 17:29] VITALS: BMI 46.7
--- NOTE | 2022-07-30 09:03 | P.HPOR ---
History of Present Illness H&P Date: 07/30/22 Chief Complaint: Right knee pain The patient is a 62-year-old female who presents with progressive right knee pain over the past several years worsening over the past 6 months. She notes diffuse pain increases with standing and walking. She notes daily pain that limits her normal function and activities. She had a previous arthroscopy 25 years ago. She's been working on weight loss, but has difficult time exercising. She is unable to take anti-inflammatories because of a previous nephrectomy. Review of Systems As per HPI Past Medical History Past Medical History: Cancer, Diabetes Mellitus, Hyperlipidemia, Hypertension, Osteoarthritis (OA), Sleep Apnea/CPAP/BIPAP Additional Past Medical History / Comment(s): no cpap used currently, hx kidney cancer, oxygen continuous at 1L NC History of Any Multi-Drug Resistant Organisms: None Reported Past Surgical History: Cholecystectomy, Heart Catheterization, Hysterectomy Additional Past Surgical History / Comment(s): right oophorectomy prior to hysterectomy. arthroscopy rt knee. surgery for right ankle fx , rt nephrectomy. Past Anesthesia/Blood Transfusion Reactions: Previous Problems w/ Anesthesia, Family History of Problems w/ Anesthesia Additional Past Anesthesia/Blood Transfusion Reaction / Comment(s): "respiratory distress in recovery after kidney surgery due to sleep apnea"Per Pulmonology clearance(states may need bipap postop-had to be extubated to bipap post kidney surgery & was in the ICU), sister developed PE after surgery Past Psychological History: Bipolar, Depression, Schizoaffective Disorder Smoking Status: Former smoker Past Alcohol Use History: None Reported Additional Past Alcohol Use History / Comment(s): quit smoking 9 yrs ago, smoked for 35 yrs Past Drug Use History: None Reported - Past Family History Father Family Medical History: Myocardial Infarction ([place]) Additional Family Medical History / Comment(s): Father has and patient does not know cause. Apparently mother is alive at age 81. Patient has no sisters and no brothers. Family history of bipolar. Patient has 1 daughter and 1 son. Sister(s) Family Medical History: Pulmonary Embolus Medications and Allergies Home Medications Medication Instructions Recorded Confirmed Type Glimepiride [Amaryl] 4 mg PO AC-BRKFST 07/22/20 07/26/22 History ARIPiprazole [Abilify] 10 mg PO HS 07/26/22 07/26/22 History Losartan Potassium [Cozaar] 25 mg PO QAM 07/26/22 07/26/22 History Metoprolol Tartrate [Lopressor] 25 mg PO QAM 07/26/22 07/26/22 History Rosuvastatin [Crestor] 20 mg PO HS 07/26/22 07/26/22 History Allergies Allergy/AdvReac Type Severity Reaction Status Date / Time No Known Allergies Allergy Verified 07/26/22 17:09 Physical Examination - Knee right Appearance: effusion, varus alignment in stance Effusion grade: grade 1 Tenderness with palpation: medial Pain: with flexion ROM: extension: -10 degrees ROM: flexion: 90 degrees Strength: extension: 5/5 Strength: flexion: 5/5 Meniscal tests: medial meniscal tests: positive Results The patient is a well-developed well-nourished female of endomorphic habitus. HEENT exam is nonfocal. Neck is supple. She has painless passive motion of the right hip. Straight leg raise is negative. Her right knee is stable to varus and valgus stress. She has an antalgic gait pattern. Her distal neurovascular appears intact in the right lower extremity. - Diagnostic results Knee x-ray: image reviewed (3 views of the right knee obtained in the office show severe medial compartment osteoarthrosis with [id number] changes and subchondral sclerosis.) Assessment and Plan Assessment: Right knee severe tricompartmental osteoarthrosis Obesity Diabetes History of renal cell carcinoma Plan: I talked to the patient at length regarding her condition along with treatment options. At this point she is quite limited because of pain related to her osteoarthrosis despite previous conservative measures. After thorough discussion she opted to proceed with surgery. We will plan to proceed with right total knee arthroplasty. Risks and benefits are discussed at length in layman's terms. She underwent preoperative medical and cardiac clearance. We will institute DVT prophylaxis postoperatively. Time with Patient: Less than 30
[~2022-07-31 08:31] MED LIST changes: +ACETAMINOPHEN TAB 500 MG TAB PO PRN; -DEXAMETHASONE SOD PHOSPHATE 10 MG/ML 1 ML VIAL IV ONE; +HYDROmorphone (PF) 1 MG/ML ONE; +LIDOCAINE 1% (10MG/ML) FOR IV START INTRADERMA PRN; +MELOXICAM 7.5 MG TAB PO PRN; +MIDAZOLAM 2 MG/2 ML VIAL ONE; +ROPIVACAINE 5 MG/ML 30 ML VIAL ONE; +SODIUM CHLORIDE 0.9% (PF) 10 ML VIAL ONE; +TRANEXAMIC ACID IN NACL,ISO-OS 1,000 MG in SALINE 1 100ML.BAG IVPB PRN; +TRANEXAMIC ACID IN NACL,ISO-OS 1,000 MG/100 ML BAG ONE; +diphenhydrAMINE 50 MG/ML 1 ML VIAL ONE
[2022-07-31] MEDS: LACTATED RINGERS 1,000 ML IV SCH (08:54)
[2022-07-31] MEDS ORDERED: ACETAMINOPHEN TAB 500 MG TAB ONE (09:05)
[2022-07-31 09:33] LABS: Glucose,Whole Blood 217 mg/dL (70-110)
[2022-07-31] MEDS ORDERED: fentaNYL (PF) 50 MCG/ML 2 ML AMP IVP ONE (09:36)
[2022-07-31] MEDS ORDERED: MIDAZOLAM 2 MG/2 ML VIAL IVP ONE (09:36)
--- NOTE | 2022-07-31 10:55 | P.ANPRN ---
Procedure Note - Anesthesia - Nerve Block Performed Right Adductor Canal Infusion Time Out Performed: Yes (0936) Date of Procedure: 07/31/22 Procedure Start Time: :37 Procedure Stop Time: :42 Location of Patient: PreOp Indication: Acute Post-Operative Pain, Requested by Surgeon Specifically requested for management of pain by : Kwan Marvin Sedation Type: Sedate with meaningful contact maintained Preparation: Sterile Prep, Sterile Dressing Position: Supine Catheter Depth at Skin (cm): 8 Catheter: Indwelling Needle Types: Pajunk Needle Gauge: 18 Ultrasound used to visualize needle placement: Yes Ultrasound used to observe medication spread: Yes Injectate: 0.5% Ropivacaine (see comment for volume) (15cc + 5cc nacl pf) Blood Aspirated: No Pain Paresthesia on Injection Noted: No Resistance on Injection: Normal Image Stored and Saved: Yes Events: Uneventful and Well Tolerated
--- NOTE | 2022-07-31 10:57 | P.ANPRN ---
Procedure Note - Anesthesia - Nerve Block Performed Right iPack Single Time Out Performed: Yes (0936) Date of Procedure: 07/31/22 Procedure Start Time: 09:43 Procedure Stop Time: 09:47 Location of Patient: PreOp Indication: Acute Post-Operative Pain, Requested by Surgeon Specifically requested for management of pain by DrManny: Kwan Marvin Sedation Type: Sedate with meaningful contact maintained Preparation: Sterile Prep Position: Supine Catheter: None Needle Types: Pajunk Needle Gauge: 21 Ultrasound used to visualize needle placement: Yes Ultrasound used to observe medication spread: Yes Injectate: 0.5% Ropivacaine (see comment for volume) (15cc + 5cc nacl pf) Blood Aspirated: No Pain Paresthesia on Injection Noted: No Resistance on Injection: Normal Image Stored and Saved: Yes Events: Uneventful and Well Tolerated
[2022-07-31] MEDS ORDERED: HYDROcodone/APAP 5-325MG 1 EACH TAB PO PRN (12:04)
[2022-07-31] MEDS ORDERED: NALOXONE 0.4 MG/ML 1 ML VIAL IV PRN (12:04)
[2022-07-31] MEDS ORDERED: HYDROmorphone 0.5 MG/0.5 ML SYRINGE IVP PRN ×2 (12:04)
[2022-07-31] MEDS ORDERED: MAGNESIUM HYDROXIDE 2,400 MG/10 ML CUP PO PRN (12:04)
[2022-07-31] MEDS ORDERED: ONDANSETRON 4 MG/2 ML VIAL IVP PRN (12:04)
[2022-07-31] MEDS ORDERED: LACTATED RINGERS 1,000 ML IV ONE (12:12)
--- NOTE | 2022-07-31 12:23 | P.OP ---
Date of Procedure: 07/31/22 Preoperative Diagnosis: Right knee severe tricompartmental osteoarthrosis Postoperative Diagnosis: Same Procedure(s) Performed: Right total knee arthroplastycementedposterior stabilized Implants: Depuy Attune sinus 5 narrow cemented femoral component, size 4 cemented tibial component, 10 mm articular surface, 32 mm cemented patellar component. Anesthesia: regional, spinal Surgeon: Kwan Marvin Furniture Technician #1: Mars Appiah Estimated Blood Loss (ml): 50 Pathology: other (Bone fragments) Condition: stable Disposition: PACU Indications for Procedure: The patient's a 62-year-old female who presents with progressive right knee pain secondary to osteoarthritis despite conservative measures. A discussion of the risks and benefits of operative intervention versus continued conservative measures was made with patient. She opted to proceed with surgery. Operative risks to include infection, fracture, development of blood clots, possible neurovascular injury, possible component loosening/failure need for subsequent p rocedures was discussed. Informed consent was obtained. Operative Findings: As below Description of Procedure: The patient was brought to the operating room, and after induction of spinal anesthesia the right lower extremity was prepped and draped in a normal fashion. The tourniquet was inflated to 270 mm marker. A longitudinal incision extending 3 finger breaths above the superior pole of patella extending to the medial aspect the tibial tubercle was then made. The skin and subcutaneous tissues were divided sharply. Electrocautery was used for hemostasis. A medial parapatellar arthrotomy was performed. The medial soft tissues to include the superficial and deep portions of the medial collateral ligament were elevated subperiosteally. The patella was everted. A portion of the retropatellar fat pad was excised sharply. The anterior cruciate ligament was sacrificed. Blunt retractors were placed. A starting hole was made in the distal femur 1 cm anterior to the posterior cruciate ligament origin. An intramedullary femoral guide was then inserted planning on 5 valgus distal cut with 9 mm distal resection. The cutting block was pinned in place. The distal cut was then made. The posterior referencing sizing guide was utilized. I felt size 5 narrow was most appropriate. 3 of external rotation was built into the system and verified off the trans-epicondylar axis and the posterior condyles. The cutting block was pinned in place. The anterior, posterior, and chamfer cuts then made. Bone fragments were removed. The intercondylar guide was placed and the notch cut was made with a sagittal saw. The bone block was removed in one fragment. The trial component was then placed. There is good anterior to posterior and medial to lateral fit. The distal peg holes were drilled. The trial component was removed. Attention was then paid towards preparing the proximal femur. An extra medullary guide was utilized in line with the tibial shaft and second metatarsal distally. I planned on 2 mm resection from the medial compartment. The cutting block was pinned in place. The proximal tibial cut was then made. The bone was removed in one fragment. The remnants of the medial and lateral menisci were excised at the capsular junction with electrocautery. The tibia sized most appropriately at size 4. The trial femoral and tibial components were placed along with a 10 mm articular surface. I was able to obtain full flexion and extension with internal and external rotation. After several flexion and extension cycles, the tibial rotation was marked with electrocautery line with the medial one third of the tibial tubercle. Attention was then paid towards preparing the patella. A patella re amer was utilized taking stem to 14 mm of bone stock. A good flush cut was made. The patella sized most appropriately 32 mm. The peg holes were drilled. The trial components placed. I had good patellofemoral tracking with no hands technique. The trial components were then removed. The tibia was prepared in the appropriate rotation with appropriate drill and keel punch. The posterior osteophytes were removed with a curved osteotome. The flexion and extension gaps were checked and felt to be symmetric at 10 mm. A trial components were then removed. The bony surfaces were prepared with pulsatile lavage and dried. The tibial component was then cemented place was fully seated. Excess cement was removed. The femoral component cemented place and was fully seated. Excess cement was removed. The trial 10 mm articular surface was placed and the knee was put in full extension. The patella component was cemented place. After the cement had sufficiently hardened, the knee was again taken through a range of motion. Again I was able to obtain full flexion and extension with varus and valgus stress. The trial 10 mm articular surface was removed and the final one inserted. This was fully seated. Care was taken to avoid any soft tissue interposition. Pulsatile lavage was again utilized. The medial parapatellar arthrotomy was closed with #2 Ethibond suture. The tourniquet was deflated with approximately 60 minutes total tourniquet time. Final hemostasis was obtained with the cautery. There was minimal bleeding therefore a deep drain was not placed. The subcutaneous tissues were reapproximated with interrupted 2-0 Vicryl sutures. The skin was reapproximated with 3-0 subcuticular strata fix suture. Skin tape and adhesive was applied. A sterile dressing was applied. The patient was awoken from sedation and transferred to recovery room in good condition. Blood loss was estimated at 50 mL. No complications were incurred. Sponge and needle counts were correct at the end of the case. Varinder ARREAGA assisted during the major components of this case to include exposure, bone resection, implantation, and closure.
--- NOTE | 2022-07-31 12:52 | XR ---
EXAMINATION TYPE: XR knee limited RT DATE OF EXAM: 07/31/2022 CLINICAL HISTORY: Right knee pain and arthritis status post total knee replacement. TECHNIQUE: Portable AP and crosstable lateral views of the right knee are obtained immediately posto peratively. COMPARISON: Outside right knee x-ray June 11, 2022 FINDINGS: Metallic hardware from total right knee arthroplasty is seen and appears satisfactory in a lignment and position. There is evidence of recent surgery with diffuse subcutaneous gas and soft ti ssue swelling noted. IMPRESSION: METALLIC HARDWARE FROM TOTAL RIGHT KNEE ARTHROPLASTY IS SATISFACTORY IN ALIGNMENT.
[2022-07-31 21:43] LABS: Glucose,Whole Blood 199 mg/dL (70-110)
[2022-07-31] MEDS: INSULIN ASPART (NovoLOG) 100 UNIT/ML VIAL SQ SCH (22:16)
[2022-07-31] MEDS: SENNOSIDES-DOCUSATE SODIUM 1 EACH TAB PO SCH (22:17)
[2022-07-31] MEDS: ceFAZolin 3 GM in SODIUM CHLORIDE 0.9% 100 ML IVPB SCH (22:17)
[2022-07-31] MEDS: ATORVASTATIN 40 MG TAB PO SCH (23:03)
[2022-07-31] MEDS: ARIPiprazole 10 MG TAB PO SCH (23:03)
[2022-08-01 02:34] LABS: Glucose,Whole Blood 197 mg/dL (70-110)
[2022-08-01] MEDS: METOPROLOL TARTRATE 25 MG TAB PO SCH (03:13)
[2022-08-01] MEDS: ceFAZolin 3 GM in SODIUM CHLORIDE 0.9% 100 ML IVPB SCH (04:49)
[2022-08-01] MEDS: LACTATED RINGERS 1,000 ML IV SCH (04:50)
[2022-08-01 06:56] LABS: Glucose,Whole Blood 280 mg/dL (70-110)
--- NOTE | 2022-08-01 07:43 | P.PN ---
Progress Note - Text Progress Note Date: 08/01/22 patient was seen and evaluated at bedside. Status post postoperative day 1 for right total knee arthroplasty patient had adductor canal catheter for postop pain control. Patient rated pain at rest 6 out of 10 in severity. Patient describes pain is aching, throbbing type on the sides of the knee and back of the knee. Patient started walking with support. With activity patient pain levels are 7-9 out of 10 in severity. With the help of oral pain medications pain levels are tolerable. Patient denied any weakness/ numbness in lower extremities. patient denied any fever, pain over the catheter site. Physical exam: Patient vital signs stable Patient is alert awake oriented 3 responding to all questions appropriately Examination of the catheter site showed dressing intact, no leaking fluid around the catheter, no redness, no tenderness over the catheter insertion area. plan: status post postoperative day 1 for right total knee arthroplasty with adductor canal catheter for pain control. Patient was discussed to continue the medication at the rate of 8 mL per hour until the pump is completely empty and instructed the patient how to discontinue the catheter.
[2022-08-01] MEDS: HYDROcodone/APAP 7.5-325MG 1 EACH TAB PO PRN ×2 (08:46→14:44)
[2022-08-01] MEDS: RIVAROXABAN 10 MG TAB PO SCH (08:47)
[2022-08-01] MEDS: INSULIN ASPART (NovoLOG) 100 UNIT/ML VIAL SQ SCH ×4 (08:47→21:51)
[2022-08-01] MEDS ORDERED: LOSARTAN 25 MG TAB PO SCH (09:00)
[2022-08-01 10:27] LABS: Basophils # (A) 0.03 X 10*3/uL (0.00-0.10); Basophils % (A) 0.3 %; Eosinophils # (A) 0.01 X 10*3/uL (0.04-0.35); Eosinophils % (A) 0.1 %; HCT 44.6 % (37.2-46.3); HGB 13.4 g/dL (12.0-15.0); Immature Grans, Automated 0.4 %; Lymphocytes # (A) 0.49 X 10*3/uL (0.90-5.00); Lymphocytes % (A) 4.5 %; MCH 29.7 pg (27.0-32.0); MCV 98.9 fL (80.0-97.0); Mean Platelet Volume 10.2 fL (9.5-12.2); Monocytes # (A) 0.88 X 10*3/uL (0.20-1.00); NRBC Per 100 WBC 0 /100 WBCS (0.0-0.0); Neutrophils # (A) 9.51 X 10*3/uL (1.80-7.70); Neutrophils % (A) 86.7 %; Platelet Count 269 X 10*3/uL (140-440); RBC 4.51 X 10*6/uL (4.10-5.20); RDW 15.2 % (11.5-14.5); WBC 10.96 X 10*3/uL (4.50-10.00)
--- NOTE | 2022-08-01 10:28 | P.PN ---
Subjective Progress Note Date: 08/01/22 Principal diagnosis: Status post right total knee arthroplasty Patient was evaluated today at bedside, she is resting in her hospital chair. Patient states physical therapy is very difficult today due to pain control. She became very unsteady on her feet when working with therapy, she was utilizing a walker. Currently she is not expressing any shortness of breath, she was earlier during therapy. She has been utilizing the nasal cannula since then. Currently denies any chest pain. She's been urinating with no difficulties. Objective - Vital Signs Vital signs: Vital Signs Temp 98 F 08/01/22 07:23 Pulse 89 08/01/22 07:23 Resp 18 08/01/22 07:23 BP 131/92 08/01/22 07:23 Pulse Ox 93 L 08/01/22 07:32 FiO2 Intake & Output 07/31/22 08/01/22 08/01/22 18:59 06:59 18:59 Intake Total 1050 296 Output Total 50 Balance 1000 296 Weight 122.5 kg 122.5 kg Intake: IV 1050 Oral 296 Output: Estimated Blood Loss 50 Other: Voiding Method Toilet # Voids 1 - Exam Right lower extremity: Incision is clean, dry, and intact. The exofin fusion tape is in good condition. There is minimal soft tissue swelling and ecchymosis surrounding the medial and lateral aspects of the incision. Calf is soft, no tenderness with palpation. Plantar flexion, dorsiflexion, EHL, FHL are intact. Sensory exam to light touch throughout the extremity is intact, dorsal pedis pulses 2+. - Labs Labs: Abnormal Lab Results - Last 24 Hours (Table) 07/31/22 08/01/22 08/01/22 Range/Units 21:41 02:23 06:54 POC Glucose (mg/dL) 199 H 197 H 280 H (70-110) mg/dL Assessment and Plan Assessment: Postoperative day #1 status post right total knee arthroplasty Plan: Pain control, had a long discussion today with patient regarding use of both the oral and IV medications needed. DVT prophylaxis, continue Xarelto during hospital stay Encourage incentive spirometer Icing and elevating techniques discussed Continue PT/OT, weight-bear as tolerated with walker Medical recommendations Discharge planning: Had a long discussion with patient today regarding discharge and the possibility of subacute rehab. Patient feels that with better pain control she will be able to progress her activities. We will reassess on 08/02/2020 Time with Patient: Less than 30
[2022-08-01] MEDS: GLIMEPIRIDE 4 MG TAB PO SCH (11:15)
[2022-08-01 11:38] LABS: Glucose,Whole Blood 237 mg/dL (70-110)
[2022-08-01 12:21] LABS: ALT 11 U/L (4-34); AST 12 U/L (14-36); African American GFR (CKD) 63 (>60 ml/min/1.73 sqM); Albumin 3.3 g/dL (3.5-5.0); Albumin/Globulin Ratio 1.4; Alkaline Phosphatase 103 U/L (38-126); Anion Gap 9 mmol/L; Blood Urea Nitrogen 20 mg/dL (7-17); Calcium 8.2 mg/dL (8.4-10.2); Carbon Dioxide 29 mmol/L (22-30); Chloride 98 mmol/L (98-107); Globulin 2.4 g/dL; Glucose 254 mg/dL (74-99); Non-African American GFR(CKD) 55 (>60 ml/min/1.73 sqM); Sodium 136 mmol/L (137-145); Total Bilirubin 0.4 mg/dL (0.2-1.3); Total Protein 5.7 g/dL (6.3-8.2)
[2022-08-01 16:58] LABS: Glucose,Whole Blood 138 mg/dL (70-110)
[2022-08-01 20:44] LABS: Glucose,Whole Blood 227 mg/dL (70-110)
[2022-08-01] MEDS ORDERED: ATORVASTATIN 40 MG TAB PO SCH (21:00)
[2022-08-01] MEDS: ARIPiprazole 10 MG TAB PO SCH (21:51)
[2022-08-01] MEDS: ATORVASTATIN 40 MG TAB PO SCH (21:51)
[2022-08-01] MEDS: SENNOSIDES-DOCUSATE SODIUM 1 EACH TAB PO SCH (21:51)
--- NOTE | 2022-08-01 22:11 | P.CONS ---
History of Present Illness - Reason for Consult Consult date: 08/01/22 Medical management - Chief Complaint Status post right total knee arthroplasty - History of Present Illness Patient is a 62-year-old female with a known history of hypertension, hyperlipidemia, osteoarthritis, obstructive sleep apnea not on CPAP, asthma/COPD on home oxygen 1 L via nasal cannula and bipolar disorder, schizoaffective disorder and previous history of smoking was admitted to the hospital for elective right total knee arthroplasty. Patient has been having severe right knee pain and x-ray showed tricompartmental osteoarthrosis. Patient tolerated the procedure very well. Currently patient is on adductor canal catheter for pain control. Patient denied any complaints of chest pain or shortness of breath. No nausea vomiting abdominal pain or diarrhea. No cough or sputum production. No headache or dizziness or lightheadedness. Postoperatively patient was hypotensive with blood pressure down to 96/56. Laboratory test showed WBC 10.9 hemoglobin 13.4 and platelets 269 Sodium 136 potassium 5.0 chloride 98 bicarb is 29 BUN 20 and creatinine 1.1 and blood sugar is 254 albumin 3.3 Review of Systems Constitutional: Patient denies any fever or chills . no Generalized weakness. Abdomen: Patient denied any nausea or vomiting or abd. pain Cardiovascular: Patient denies any chest pain or short of breath no palpitations. Respiratory: patient denied any cough is from production. No shortness of breath Neurologic: Patient denied any numbness or tingling headache. Musculoskeletal: Patient denies any complaints of joint swelling or deformity. Skin: Negative Psychiatric: Negative Endocrine: No heat or cold intolerance. No recent weight gain. Genitourinary: No dysuria or hematuria. All other 14 point ROS negative except the above Past Medical History Past Medical History: Cancer, Diabetes Mellitus, Hyperlipidemia, Hypertension, Osteoarthritis (OA), Sleep Apnea/CPAP/BIPAP Additional Past Medical History / Comment(s): no cpap used currently, hx kidney cancer, oxygen continuous at 1L [place] History of Any Multi-Drug Resistant Organisms: None Reported Past Surgical History: Cholecystectomy, Heart Catheterization, Hysterectomy Additional Past Surgical History / Comment(s): right oophorectomy prior to hys terectomy. arthroscopy rt knee. surgery for right ankle fx , rt nephrectomy. Past Anesthesia/Blood Transfusion Reactions: Previous Problems w/ Anesthesia, Family History of Problems w/ Anesthesia Additional Past Anesthesia/Blood Transfusion Reaction / Comm: "respiratory distress in recovery after kidney surgery due to sleep apnea"Per Pulmonology c learance(states may need bipap postop-had to be extubated to bipap post kidney surgery & was in the ICU), sister developed PE after surgery Past Psychological History: Bipolar, Depression, Schizoaffective Disorder Smoking Status: Former smoker Past Alcohol Use History: None Reported Additional Past Alcohol Use History / Comment(s): quit smoking 9 yrs ago, smoked for 35 yrs Past Drug Use History: None Reported - Past Family History Father Family Medical History: Myocardial Infarction ([place]) Additional Family Medical History / Comment(s): Father has and patient does not know cause. Apparently mother is alive at age 81. Patient has no sisters and no brothers. Family history of bipolar. Patient has 1 daughter and 1 son. Sister(s) Family Medical History: Pulmonary Embolus Medications and Allergies Home Medications Medication Instructions Recorded Confirmed Type Glimepiride [Amaryl] 4 mg PO [id number] 07/22/20 07/31/22 History ARIPiprazole [Abilify] 10 mg PO 07/26/22 07/31/22 History Losartan Potassium [Cozaar] 25 mg PO [facility] 07/26/22 07/31/22 History Metoprolol Tartrate [Lopressor] 25 mg PO [facility] 07/26/22 07/31/22 History Rosuvastatin [Crestor] 20 mg PO 07/26/22 07/31/22 History Allergies Allergy/AdvReac Type Severity Reaction Status Date / Time No Known Allergies Allergy Verified 07/31/22 08:55 Physical Exam Vitals: Vital Signs Temp Pulse Pulse Resp BP Pulse Ox 08/01/22 13:39 97.9 F 90 17 93/62 92 L 08/01/22 07:32 93 L 08/01/22 07:23 98 F 89 18 131/92 92 L 08/01/22 04:19 104 H 08/01/22 03:13 115 H 93 L 08/01/22 02:00 99.2 F 125 H 30 H 109/56 98 07/31/22 19:30 97.9 F 94 18 96/56 98 Intake and Output 07/31/22 08/01/22 08/01/22 22:59 06:59 14:59 Intake Total 592 Balance 592 Intake: Oral 592 Other: Voiding Method Toilet # Voids 1 Weight 122.5 kg PHYSICAL EXAMINATION: Patient is lying in the bed comfortably, no acute distress, awake alert and oriented.. HEENT: Normocephalic. Neck is supple. Pupils reactive. Nostrils clear. Oral cavity is moist. Neck reveals no JVD, carotid bruits, or thyromegaly. CHEST EXAMINATION: Trachea is central. Symmetrical expansion. Bibasilar diminished sounds. Minimal expiratory wheeze. No rhonchi or crackles.. CARDIAC: Normal S1, S2 with no gallops. No murmurs ABDOMEN: Soft. Bowel sounds present. Nontender. No organomegaly. No abdominal bruits. Extremities: reveal no edema. No clubbing or cyanosis Neurologically awake, alert, oriented x3 with well-coordinated movements. No focal deficits noted Skin: No rash or skin lesions. Psychiatric: Coperative. Nonsuicidal, Musculoskeletal: No joint swelling or deformity. Normal range of motion. Right knee surgical site is bandaged. Results CBC & Chem 7: 08/01/22 06:42 08/01/22 06:42 Labs: Abnormal Lab Results - Last 24 Hours (Table) 07/31/22 08/01/22 08/01/22 Range/Units 21:41 02:23 06:42 WBC 10.96 H (4.50-10.00) X 10*3/uL MCV 98.9 H (80.0-97.0) fL MCHC 30.0 L (32.0-37.0) g/dL RDW 15.2 H (11.5-14.5) % Neutrophils # 9.51 H (1.80-7.70) X 10*3/uL Lymphocytes # 0.49 L (0.90-5.00) X 10*3/uL Eosinophils # 0.01 L (0.04-0.35) X 10*3/uL Sodium (137-145) mmol/L BUN (7-17) mg/dL Creatinine (0.52-1.04) mg/dL Glucose (74-99) mg/dL POC Glucose (mg/dL) 199 H 197 H (70-110) mg/dL Calcium (8.4-10.2) mg/dL AST (14-36) U/L Total Protein (6.3-8.2) g/dL Albumin (3.5-5.0) g/dL 08/01/22 08/01/22 08/01/22 Range/Units 06:42 06:54 11:37 WBC (4.50-10.00) X 10*3/uL MCV (80.0-97.0) fL MCHC (32.0-37.0) g/dL RDW (11.5-14.5) % Neutrophils # (1.80-7.70) X 10*3/uL Lymphocytes # (0.90-5.00) X 10*3/uL Eosinophils # (0.04-0.35) X 10*3/uL Sodium 136 L (137-145) mmol/L BUN 20 H (7-17) mg/dL Creatinine 1.10 H (0.52-1.04) mg/dL Glucose 254 H (74-99) mg/dL POC Glucose (mg/dL) 280 H 237 H (70-110) mg/dL Calcium 8.2 L (8.4-10.2) mg/dL AST 12 L (14-36) U/L Total Protein 5.7 L (6.3-8.2) g/dL Albumin 3.3 L (3.5-5.0) g/dL Assessment and Plan Assessment: S/p right total knee arthroplasty postoperative day 1 Hypotension likely due to postoperative. Improved now. Hypertension Hyperlipidemia Diabetes type 2 [id number] with hyperglycemia Obstructive sleep apnea not on CPAP at home currently Asthma Chronic hypoxic respiratory failure on 1 L oxygen via nasal cannula at home Possible underlying COPD Previous history of smoking Bipolar disorder and schizoaffective disorder Morbid obesity BMI 46.8 DVT prophylaxis currently on Xarelto Plan: Patient will be continued on incentive spirometry and duo nebs as needed for shortness of breath. Blood pressure medications on hold today and will be reinitiated once blood pressure improves. Continue with insulin sliding scale for better blood sugar control. Pain is currently controlled well. Follow-up CBC and BMP. We will continue to follow and further recommendations based on the clinical course. Thank you for your consult. Time with Patient: Greater than 30
[2022-08-02] MEDS: HYDROcodone/APAP 7.5-325MG 1 EACH TAB PO PRN ×2 (05:34→10:41)
[2022-08-02 07:14] LABS: Glucose,Whole Blood 193 mg/dL (70-110)
[2022-08-02] MEDS: METOPROLOL TARTRATE 25 MG TAB PO SCH (08:20)
[2022-08-02] MEDS: GLIMEPIRIDE 4 MG TAB PO SCH (08:20)
[2022-08-02] MEDS: RIVAROXABAN 10 MG TAB PO SCH (08:20)
[2022-08-02] MEDS: INSULIN ASPART (NovoLOG) 100 UNIT/ML VIAL SQ SCH ×4 (08:20→20:48)
[2022-08-02] MEDS ORDERED: HYDROcodone/APAP 7.5-325MG 1 EACH TAB PO PRN (10:51)
--- NOTE | 2022-08-02 11:25 | P.PN ---
Subjective Progress Note Date: 08/02/22 Principal diagnosis: Status post right total knee arthroplasty Patient was evaluated today at bedside, she is resting in her hospital chair. Patient has continued to struggle and require a lot of assistance when ambulating. She states that she is not getting a full 6 hours out of the pain medication.. Currently denies any chest pain. She's been urinating with no difficulties. Objective - Vital Signs Vital signs: Vital Signs Temp 99.0 F 08/02/22 08:00 Pulse 115 H 08/02/22 08:00 Resp 18 08/02/22 08:00 BP 127/71 08/02/22 08:00 Pulse Ox 92 L 08/02/22 08:00 FiO2 Intake & Output 08/01/22 08/02/22 08/02/22 18:59 06:59 18:59 Intake Total 888 Balance 888 Intake: Oral 888 Other: Voiding Method Toilet Bedside Commode # Voids 2 1 - Exam Right lower extremity: Incision is clean, dry, and intact. The exofin fusion tape is in good condition. There is minimal soft tissue swelling and ecchymosis surrounding the medial and lateral aspects of the incision. Calf is soft, no tenderness with palpation. Plantar flexion, dorsiflexion, EHL, FHL are intact. Sensory exam to light touch throughout the extremity is intact, dorsal pedis pulses 2+. - Labs CBC & Chem 7: 08/01/22 06:42 08/01/22 06:42 Labs: Abnormal Lab Results - Last 24 Hours (Table) 08/01/22 08/01/22 08/01/22 Range/Units 06:42 11:37 16:57 Sodium 136 L (137-145) mmol/L BUN 20 H (7-17) mg/dL Creatinine 1.10 H (0.52-1.04) mg/dL Glucose 254 H (74-99) mg/dL POC Glucose (mg/dL) 237 H 138 H (70-110) mg/dL Calcium 8.2 L (8.4-10.2) mg/dL AST 12 L (14-36) U/L Total Protein 5.7 L (6.3-8.2) g/dL Albumin 3.3 L (3.5-5.0) g/dL 09/07/22 09/08/22 Range/Units 20:40 07:12 Sodium (137-145) mmol/L BUN (7-17) mg/dL Creatinine (0.52-1.04) mg/dL Glucose (74-99) mg/dL POC Glucose (mg/dL) 227 H 193 H (70-110) mg/dL Calcium (8.4-10.2) mg/dL AST (14-36) U/L Total Protein (6.3-8.2) g/dL Albumin (3.5-5.0) g/dL Assessment and Plan Assessment: Postoperative day #2 status post right total knee arthroplasty Plan: Pain control, did change [place] 7.5 mg 2 every 4 hours DVT prophylaxis, continue Xarelto during hospital stay Encourage incentive spirometer Icing and elevating techniques discussed Continue PT/OT, weight-bear as tolerated with walker Medical recommendations Discharge planning: Spoke again with the patient today regarding her current discharge plans. We again discussed the possibility of subacute rehab. I feel that the patient would benefit from subacute rehab placement. Discussed with nursing and case management to begin the prior authorization process. We will reassess on 08/03/2022. Time with Patient: Less than 30
[2022-08-02 11:51] LABS: Glucose,Whole Blood 227 mg/dL (70-110)
[2022-08-02] MEDS ORDERED: HYDROcodone/APAP 5-325MG 1 EACH TAB PO PRN (12:23)
[2022-08-02 17:12] LABS: Glucose,Whole Blood 74 mg/dL (70-110)
[2022-08-02 20:16] LABS: Glucose,Whole Blood 75 mg/dL (70-110)
[2022-08-02] MEDS: ATORVASTATIN 40 MG TAB PO SCH (20:43)
[2022-08-02] MEDS: SENNOSIDES-DOCUSATE SODIUM 1 EACH TAB PO SCH (20:43)
[2022-08-02] MEDS: ARIPiprazole 10 MG TAB PO SCH (21:40)
[2022-08-03 02:41] LABS: Glucose,Whole Blood 81 mg/dL (70-110)
[2022-08-03 06:53] LABS: Glucose,Whole Blood 100 mg/dL (70-110)
[2022-08-03] MEDS: INSULIN ASPART (NovoLOG) 100 UNIT/ML VIAL SQ SCH ×2 (07:26→12:47)
[2022-08-03] MEDS: GLIMEPIRIDE 4 MG TAB PO SCH (08:16)
[2022-08-03] MEDS: METOPROLOL TARTRATE 25 MG TAB PO SCH (08:16)
[2022-08-03] MEDS: RIVAROXABAN 10 MG TAB PO SCH (08:16)
--- NOTE | 2022-08-03 10:04 | P.PN ---
Subjective Progress Note Date: 08/02/22 - Reason for Consult Consult date: 08/01/22 Medical management - Chief Complaint Status post right total knee arthroplasty - History of Present Illness Patient is a 62-year-old female with a known history of hypertension, hyperlipidemia, osteoarthritis, obstructive sleep apnea not on CPAP, asthma/COPD on home oxygen 1 L via nasal cannula and bipolar disorder, schizoaffective disorder and previous history of smoking was admitted to the hospital for elective right total knee arthroplasty. Patient has been having severe right knee pain and x-ray showed tricompartmental osteoarthrosis. Patient tolerated the procedure very well. Currently patient is on adductor canal catheter for pain control. Patient denied any complaints of chest pain or shortness of breath. No nausea vomiting abdominal pain or diarrhea. No cough or sputum production. No headache or dizziness or lightheadedness. Postoperatively patient was hypotensive with blood pressure down to 96/56. Laboratory test showed WBC 10.9 hemoglobin 13.4 and platelets 269 Sodium 136 potassium 5.0 chloride 98 bicarb is 29 BUN 20 and creatinine 1.1 and blood sugar is 254 albumin 3.3 08/02/2022 Patient is seen in follow up this morning and currently attempting to work with physical therapy and almost maximum assistance. Orthopedics following and right knee dressing appears dry and intact with an ice pack on it currently. Patient is reporting pain and encouraged the use of pain medications as needed and per nursing staff patient had been refusing the medications. Had a lengthy discussion about her overall progress and safety risk going home in this condition and her high risk of falls. Patient reluctant of rehab and reports she will be going home. Encouraged the patient to talk with case management and consider rehab for some continued PT/OT therapy short term to gain strength and mobility. Patient is tearful on exam. Patient reports some shortness of breath and had been off oxygen during the transfer to the chair that took over 20 m inutes. Oxygen at 4L via NC reapplied. Encouraged incentive spirometer and had to educate the patient on how to properly use the device. Encouraged using it at least 10 times per hour while awake. Patient is afebrile and denies chest pain or palpitations. No reports of nausea or vomiting noted and tolerating diet. Review of systems: Constitutional: No reports of fatigue, fever, or chills Cardiovascular: No reports of chest pain or palpitations Respiratory: No reports of shortness of breath or cough GI: No reports of nausea, vomiting, or diarrhea, patient reports not passing gas or having bowel movements : No reports of dysuria or retention Neurovascular: reports of weakness and right knee pain All medications have been reviewed PHYSICAL EXAMINATION: Patient is sitting up in the chair, no acute distress, awake alert and oriented.. Somewhat delayed and tearful and reports pain due to recent activity with physical therapy HEENT: Normocephalic. Neck is supple. Pupils reactive. Nostrils clear. Oral cavity is moist. Neck reveals no JVD, carotid bruits, or thyromegaly. CHEST EXAMINATION: Trachea is central. Symmetrical expansion. Bibasilar diminished sounds. Minimal expiratory wheeze. No rhonchi or crackles.. CARDIAC: Normal S1, S2 with no gallops. No murmurs ABDOMEN: Soft. Bowel sounds present. Nontender. No organomegaly. No abdominal bruits. Extremities: reveal no edema. No clubbing or cyanosis Neurologically awake, alert, oriented x3 with well-coordinated movements. No focal deficits noted Skin: No rash or skin lesions. Psychiatric: Cooperative. Non-suicidal, Musculoskeletal: No joint swelling or deformity. Normal range of motion. Right knee surgical site is bandaged and ice pack applied. Assessment: S/p right total knee arthroplasty postoperative day 2 Hypotension likely due to postoperative. Improved now. Hypertension history Hyperlipidemia Diabetes type 2 [id number]-[id number] with hyperglycemia Obstructive sleep apnea not on CPAP at home currently Asthma Chronic hypoxic respiratory failure on 4 L oxygen via nasal cannula at home Possible underlying COPD Previous history of smoking Bipolar disorder and schizoaffective disorder Morbid obesity BMI 46.8 DVT prophylaxis currently on Xarelto Plan: Patient will be continued on incentive spirometry and duo nebs as needed for shortness of breath. Patient was found with no oxygen on as patient was working with physical therapy and reporting shortness of breath and 4 L placed Encouraged incentive spirometer use at least 10 times every hour while awake and patient needed instruction on how to use she was not using it correctly. Blood pressure medications on hold today and will be reinitiated once blood pressure improves. Continue with insulin sliding scale for better blood sugar control. Encouraged to increase activity as tolerated and encouraged oral intake Pain management per orthopedic services and educated the patient that pain medications are as needed and not scheduled We will continue to follow and further recommendations based on the clinical course. Patient is also extremely weak almost maximum assist during physical therapy evaluation today that was personally witnessed by fiction writer and recommending rehab although patient initially was reluctant and had a discussion about safety and going to rehab for short-term to continue strength and mobility and patient will think about it. Case management is following. We will continue to follow during hospitalization with orthopedics. Thank you for this consultation. The impression and plan of care has been dictated by Nan Noguera, Nurse Practitioner as directed. Dr. Melisa MD I have performed a history and examination and MDM of this patient, discussed the same with the dictator, and agree with the dictator's assessment and plan as written ,documented as a scribe. Based on total visit time, I have performed more than 50% of the visit. Objective - Vital Signs Vital signs: Vital Signs Temp 99.0 F 08/02/22 08:00 Pulse 115 H 08/02/22 08:00 Resp 18 08/02/22 08:00 BP 127/71 08/02/22 08:00 Pulse Ox 92 L 08/02/22 08:00 FiO2 Intake & Output 08/01/22 08/02/22 08/02/22 18:59 06:59 18:59 Intake Total 888 Balance 888 Intake: Oral 888 Other: Voiding Method Toilet Bedside Commode # Voids 2 1 - Labs CBC & Chem 7: 08/01/22 06:42 08/01/22 06:42 Labs: Abnormal Lab Results - Last 24 Hours (Table) 08/01/22 08/01/22 08/01/22 Range/Units 06:42 06:42 11:37 WBC 10.96 H (4.50-10.00) X 10*3/uL MCV 98.9 H (80.0-97.0) fL MCHC 30.0 L (32.0-37.0) g/dL RDW 15.2 H (11.5-14.5) % Neutrophils # 9.51 H (1.80-7.70) X 10*3/uL Lymphocytes # 0.49 L (0.90-5.00) X 10*3/uL Eosinophils # 0.01 L (0.04-0.35) X 10*3/uL Sodium 136 L (137-145) mmol/L BUN 20 H (7-17) mg/dL Creatinine 1.10 H (0.52-1.04) mg/dL Glucose 254 H (74-99) mg/dL POC Glucose (mg/dL) 237 H (70-110) mg/dL Calcium 8.2 L (8.4-10.2) mg/dL AST 12 L (14-36) U/L Total Protein 5.7 L (6.3-8.2) g/dL Albumin 3.3 L (3.5-5.0) g/dL 08/01/22 08/01/22 08/02/22 Range/Units 16:57 20:40 07:12 WBC (4.50-10.00) X 10*3/uL MCV (80.0-97.0) fL MCHC (32.0-37.0) g/dL RDW (11.5-14.5) % Neutrophils # (1.80-7.70) X 10*3/uL Lymphocytes # (0.90-5.00) X 10*3/uL Eosinophils # (0.04-0.35) X 10*3/uL Sodium (137-145) mmol/L BUN (7-17) mg/dL Creatinine (0.52-1.04) mg/dL Glucose (74-99) mg/dL POC Glucose (mg/dL) 138 H 227 H 193 H (70-110) mg/dL Calcium (8.4-10.2) mg/dL AST (14-36) U/L Total Protein (6.3-8.2) g/dL Albumin (3.5-5.0) g/dL
[2022-08-03 11:51] LABS: Glucose,Whole Blood 125 mg/dL (70-110)
--- NOTE | 2022-08-03 13:17 | P.DS ---
Providers Date of admission: 08/02/22 11:45 Expected date of discharge: 08/03/22 Attending physician: Kwan Marvin Consults: 07/31/22 12:04 Consult Physician Routine Consulting Provider: Glynn Venegas Consult Reason/Comments: medical management Do you want consulting provider notified?: Yes Primary care physician: Kusum Graves Hospital Course: Date of admission: 07/31/2022 Date of discharge: 08/03/2022 Admission diagnosis: Right knee osteoarthritis Discharge diagnosis: Same Attending physician: Dr. Marvin Surgical procedures: Right total knee arthroplasty Brief history: Patient is a 62-year-old female with a history of progressive primary right knee osteoarthritis. At this point patient has failed conservative treatment measures and has opted to proceed with a elective right total knee arthroplasty. Hospital course: Details of patient's surgery can be found in operative report. Patient tolerated the procedure well and was subsequently transported to orthopedic floor. Patient's orthopeidc and medical care was provided daily. Patient had daily laboratory tests performed for evaluation of overall blood counts. Patient had daily physical therapy to include strengthening range of motion as well as education with walker ambulation. Patient was treated with Xarelto for their postoperative DVT prophylaxis during their inpatient stay. Patient was noted to have a relatively uneventful postoperative course. Patient reported satisfactory pain control with oral pain medications by postoperative day 3. Patient showed satisfactory progress with physical therapy. Patient moved steadily through the program and had no difficulty meeting the goals by postoperative day 3. Given patient's otherwise satisfactory course and having met physical therapy goals, plan is to discharge patient to rehab on postoperative day 3. Discharge condition/disposition: Patient will be discharged to rehab in stable condition. Discharge medications: Instructions are given on resumption of patient's normal daily medications per primary care recommendation, in addition patient will be prescribed [place] 7.5 mg/325 mg; Colace; Eliqusi 2.5 mg BID x 2 weeks. Discharge instructions: 1. Wound care and infection precautions, keep incision dry and covered while showering, no lotions, creams, moisturizers. No soaking, tubs, pools, hottubs. Do not scrub over the incision. 2. Weight-bear as tolerated with walker / cane until follow-up. 3. Ice and elevate when necessary. Do not exceed 20 minutes per hour with ice pack. 4. Utilize compression sleeve until seen at first follow up appointment. 5. Visiting nursing care. 6. Home physical therapy including home CPM. 7. Pain meds and anticoagulants per prescription. 8. Pain medication has potential to cause constipation. Increase oral fluid and fiber intake. Contact primary care provider if you have not had a bowel movement within 48 hours after discharge 9. No anti-inflammatory medication until discussed at first post operative visit, this including Motrin, Aleve, Mobic, Diclofenac, Aspirin. 10. Follow up in office at 2 weeks postop with Varinder Appiah PA-C / Gurpreet Qureshi PA-C 11. Follow up with your primary care doctor 7-10 days after discharge. 12. Contact [facility] with any questions, . Keep incision clean, dry, intact. While showering, cover fusion tape with Saran wrap. Keep fusion tape on until follow-up appointment in office in 2 weeks Medications: [place] 7.5 mg/325 mg; Colace; Eliqusi 2.5 mg BID x 2 weeks. Assessment: Right knee osteoarthritis Procedures: Right total knee arthroplasty Patient Condition at Discharge: Good Plan - Discharge Summary Discharge Rx Participant: No New Discharge Prescriptions: New Docusate [Colace] 100 mg PO DAILY #30 capsule HYDROcodone/APAP 7.5-325MG [[place] 7.5] 1 - 2 each PO Q6HR PRN #36 tab PRN Reason: Pain Apixaban [Eliquis] 2.5 mg PO BID #60 tab Continue Glimepiride [Amaryl] 4 mg PO AC-BRKFST Metoprolol Tartrate [Lopressor] 25 mg PO QAM Rosuvastatin [Crestor] 20 mg PO HS Losartan Potassium [Cozaar] 25 mg PO QAM ARIPiprazole [Abilify] 10 mg PO HS Discharge Medication List Glimepiride [Amaryl] 4 mg PO AC-BRKFST 07/22/20 [History] ARIPiprazole [Abilify] 10 mg PO HS 07/26/22 [History] Losartan Potassium [Cozaar] 25 mg PO QAM 07/26/22 [History] Metoprolol Tartrate [Lopressor] 25 mg PO QAM 07/26/22 [History] Rosuvastatin [Crestor] 20 mg PO HS 07/26/22 [History] Apixaban [Eliquis] 2.5 mg PO BID #60 tab 08/03/22 [Rx] Docusate [Colace] 100 mg PO DAILY #30 capsule 08/03/22 [Rx] HYDROcodone/APAP 7.5-325MG [[place] 7.5] 1 - 2 each PO Q6HR PRN #36 tab 08/03/22 [Rx] Follow up Appointment(s)/Referral(s): Gurpreet Qureshi, JOSIE [PHYSICIAN [employer] FOREMAN/SUPERINTENDANT] - 2 Weeks [facility] [NON-STAFF] - As Needed [facility] [NON-STAFF] - As Needed (Continous Passive Motion knee machine) Activity/Diet/Wound Care/Special Instructions: Discharge instructions: 1. Wound care and infection precautions, keep incision dry and covered while showering, no lotions, creams, moisturizers. No soaking, tubs, pools, hottubs. Do not scrub over the incision. 2. Weight-bear as tolerated with walker / cane until follow-up. 3. Ice and elevate when necessary. Do not exceed 20 minutes per hour with ice pack. 4. Utilize compression sleeve until seen at first follow up appointment. 5. Visiting nursing care. 6. Home physical therapy including home CPM. 7. Pain meds and anticoagulants per prescription. 8. Pain medication has potential to cause constipation. Increase oral fluid and fiber intake. Contact primary care provider if you have not had a bowel movement within 48 hours after discharge 9. No anti-inflammatory medication until discussed at first post operative visit, this including Motrin, Aleve, Mobic, Diclofenac, Aspirin. 10. Follow up in office at 2 weeks postop with Varinder Appiah PA-C / Gurpreet Qureshi PA-C 11. Follow up with your primary care doctor 7-10 days after discharge. 12. Contact [facility] with any questions, . Keep incision clean, dry, intact. While showering, cover fusion tape with Saran wrap. Keep fusion tape on until follow-up appointment in office in 2 weeks Medications: [place] 7.5 mg/325 mg; Colace; Eliquis 2.5 mg BID x 2 weeks. Discharge Disposition: TRANSFER TO SNF/ECF
--- NOTE | 2022-08-03 13:23 | P.PN ---
Subjective Progress Note Date: 08/03/22 Principal diagnosis: Right knee osteoarthritis Patient was seen at bedside this afternoon resting cuff was sitting up in chair with right leg elevated. Patient son was present throughout the encounter. Patient says she is feeling much better today. Patient says she was able to get up under own power from bed and sit in chair. Patient says she is feeling like she is seeing improvement over the past couple days with physical therapy. Patient says she has urinated since surgery. Patient says she has not had bowel movement yet, however, patient says she has passed gas. Patient says she does have a walker for home. Patient denies chest pain, fever, shortness of breath, nausea, vomiting, change in vision, loss of bowel/bladder control. Objective - Vital Signs Vital signs: Vital Signs Temp 98.2 F 08/03/22 08:00 Pulse 114 H 08/03/22 08:00 Resp 20 08/03/22 08:16 BP 118/73 08/03/22 08:00 Pulse Ox 91 L 08/03/22 08:00 FiO2 Intake & Output 08/02/22 08/03/22 08/03/22 18:59 06:59 18:59 Output Total 3 Balance -3 Output: Stool 3 Other: Voiding Method Bedside Commode Bedside Commode # Voids 2 - Exam Right knee: Incision is clean, dry, and intact. The exofin fusion tape is in good conditio n. There is minimal soft tissue swelling and ecchymosis surrounding the medial and lateral aspects of the incision. Calf is soft, no tenderness with palpation. Plantar flexion, dorsiflexion, EHL, FHL are intact. Sensory exam to light touch throughout the extremity is intact, dorsal pedis pulses 2+. - Labs CBC & Chem 7: 08/01/22 06:42 08/01/22 06:42 Labs: Abnormal Lab Results - Last 24 Hours (Table) 08/03/22 Range/Units 11:49 POC Glucose (mg/dL) 125 H (70-110) mg/dL Assessment and Plan Assessment: 1. Right knee osteoarthritis - Postoperative day #3 status post right total knee arthroplasty Plan: 1. Right knee osteoarthritis - right total knee arthroplasty performed 07/31/2022. Patient stable at bedside this afternoon. Discharge to [facility] today. 2. Appreciate medical management 3. Pain management - [place] 4. DVT prophylaxis - Xarelto in hospital. Going to rehab with [facility] 5. GI ppx - Colace 6. PT/OT - weightbearing as tolerated with walker 7. Encourage incentive spirometer use 8. Discharge planning - discharge to [facility] today Time with Patient: Less than 30
[2022-08-03 14:25] VITALS: BP 117/77; PULSE 87; RESP 16; TEMP 98.9
--- NOTE | 2022-08-03 20:35 | P.PN ---
Subjective Progress Note Date: 08/03/22 - Reason for Consult Consult date: 08/01/22 Medical management - Chief Complaint Status post right total knee arthroplasty - History of Present Illness Patient is a 62-year-old female with a known history of hypertension, hyperlipidemia, osteoarthritis, obstructive sleep apnea not on CPAP, asthma/COPD on home oxygen 1 L via nasal cannula and bipolar disorder, schizoaffective disorder and previous history of smoking was admitted to the hospital for elective right total knee arthroplasty. Patient has been having severe right knee pain and x-ray showed tricompartmental osteoarthrosis. Patient tolerated the procedure very well. Currently patient is on adductor canal catheter for pain control. Patient denied any complaints of chest pain or shortness of breath. No nausea vomiting abdominal pain or diarrhea. No cough or sputum production. No headache or dizziness or lightheadedness. Postoperatively patient was hypotensive with blood pressure down to 96/56. Laboratory test showed WBC 10.9 hemoglobin 13.4 and platelets 269 Sodium 136 potassium 5.0 chloride 98 bicarb is 29 BUN 20 and creatinine 1.1 and blood sugar is 254 albumin 3.3 08/02/2022 Patient is seen in follow up this morning and currently attempting to work with physical therapy and almost maximum assistance. Orthopedics following and right knee dressing appears dry and intact with an ice pack on it currently. Patient is reporting pain and encouraged the use of pain medications as needed and per nursing staff patient had been refusing the medications. Had a lengthy discussion about her overall progress and safety risk going home in this condition and her high risk of falls. Patient reluctant of rehab and reports she will be going home. Encouraged the patient to talk with case management and consider rehab for some continued PT/OT therapy short term to gain strength and mobility. Patient is tearful on exam. Patient reports some shortness of breath and had been off oxygen during the transfer to the chair that took over 20 m inutes. Oxygen at 4L via NC reapplied. Encouraged incentive spirometer and had to educate the patient on how to properly use the device. Encouraged using it at least 10 times per hour while awake. Patient is afebrile and denies chest pain or palpitations. No reports of nausea or vomiting noted and tolerating diet. 08/03/2022 Patient is seen today in follow up post right knee arthroplasty and post op day 3. Patient reports pain is controlled today and had better session with PT today. Recommending [facility] for continued PT/OT therapy. Patient is now agreeable. Recommend to resume home meds and follow up with pcp on discharge. Patient is afebrile and denies chest pain or shortness of breath. Patient reports to passing gas but no BM yet. Probable medilodge today. Review of systems: Constitutional: No reports of fatigue, fever, or chills Cardiovascular: No reports of chest pain or palpitations Respiratory: No reports of shortness of breath or cough GI: No reports of nausea, vomiting, or diarrhea, patient reports passing gas : No reports of dysuria or retention Neurovascular: reports of weakness and right knee pain although improved today All medications have been reviewed PHYSICAL EXAMINATION: Patient is sitting up in the chair, no acute distress, awake alert and oriented.. HEENT: Normocephalic. Neck is supple. Pupils reactive. Nostrils clear. Oral cavity is moist. Neck reveals no JVD, carotid bruits, or thyromegaly. CHEST EXAMINATION: Trachea is central. Symmetrical expansion. Bibasilar diminished sounds. Minimal expiratory wheeze. No rhonchi or crackles.. CARDIAC: Normal S1, S2 with no gallops. No murmurs ABDOMEN: Soft. Bowel sounds present. Nontender. No organomegaly. No abdominal bruits. Extremities: reveal no edema. No clubbing or cyanosis Neurologically awake, alert, oriented x3 with well-coordinated movements. No focal deficits noted Skin: No rash or skin lesions. Psychiatric: Cooperative. Non-suicidal, Musculoskeletal: No joint swelling or deformity. Normal range of motion. Right knee surgical site is bandaged and ice pack applied. Assessment: S/p right total knee arthroplasty postoperative day 3 Hypotension likely due to postoperative. Improved now. Hypertension history Hyperlipidemia Diabetes type 2 jge-xpuujnk-pfxycuurh with hyperglycemia Obstructive sleep apnea not on CPAP at home currently Asthma Chronic hypoxic respiratory failure on 4 L oxygen via nasal cannula at home Possible underlying COPD Previous history of smoking Bipolar disorder and schizoaffective disorder Morbid obesity BMI 46.8 DVT prophylaxis currently on Xarelto Plan: Patient will be continued on incentive spirometry and duo nebs as needed for shortness of breath. Encouraged incentive spirometer use at least 10 times every hour while awake and to continue outpatient Blood pressure medications will be reinitiated once blood pressure improves. Continue with insulin sliding scale for better blood sugar control. Encouraged to increase activity as tolerated and encouraged oral intake Pain management per orthopedic services and educated the patient that pain medications are as needed and not scheduled We will continue to follow and further recommendations based on the clinical course. Patient is now agreeable and will be going to [facility]. Patient will be discharged today. We will continue to follow during hospitalization with orthopedics. Thank you for this consultation. The impression and plan of care has been dictated by Nan Noguera, Nurse Practitioner as directed. Dr. Melisa MD I have performed a history and examination and MDM of this patient, discussed the same with the dictator, and agree with the dictator's assessment and plan as written ,documented as a scribe. Based on total visit time, I have performed more than 50% of the visit. Objective - Vital Signs Vital signs: Vital Signs Temp 98.2 F 08/03/22 08:00 Pulse 114 H 08/03/22 08:00 Resp 18 08/03/22 08:00 BP 118/73 08/03/22 08:00 Pulse Ox 91 L 08/03/22 08:00 FiO2 Intake & Output 08/02/22 08/03/22 08/03/22 18:59 06:59 18:59 Output Total 3 Balance -3 Output: Stool 3 Other: Voiding Method Bedside Commode # Voids 2 - Labs CBC & Chem 7: 08/01/22 06:42 08/01/22 06:42 Labs: Abnormal Lab Results - Last 24 Hours (Table) 08/02/22 Range/Units 11:49 POC Glucose (mg/dL) 227 H (70-110) mg/dL
== END 2022-08-03 16:06 | DRG 470 ==
LOC: OR 08:31 → 4SSUR 12:15 → OR 08-02 11:45 → 4SSUR 08-02 11:45 → UNDODISIN 08-03 15:47
PROVIDERS: ADMIT Orthopaedic Surgery; ATTEND Orthopaedic Surgery
PROC: 0SRC0J9 Replacement of Right Knee Joint with Synthetic Substitute, Cemented, Open Approach (ICD-10-PCS; principal; 2022-08-02)
PROC: 3E0T3BZ Introduction of Anesthetic Agent into Peripheral Nerves and Plexi, Percutaneous Approach (ICD-10-PCS; 2022-08-02)
DX: M17.11 Unilateral primary osteoarthritis, right knee (principal); J96.11 Chronic respiratory failure with hypoxia; Z68.42 Body mass index [BMI] 45.0-49.9, adult; I95.81 Postprocedural hypotension; E11.65 Type 2 diabetes mellitus with hyperglycemia; J44.9 Chronic obstructive pulmonary disease, unspecified; E66.01 Morbid (severe) obesity due to excess calories; E78.5 Hyperlipidemia, unspecified; F25.9 Schizoaffective disorder, unspecified; F31.9 Bipolar disorder, unspecified; G47.33 Obstructive sleep apnea (adult) (pediatric); I10 Essential (primary) hypertension; J45.909 Unspecified asthma, uncomplicated; Z79.84 Long term (current) use of oral hypoglycemic drugs; Z85.528 Personal history of other malignant neoplasm of kidney; Z87.891 Personal history of nicotine dependence; Z90.5 Acquired absence of kidney; Z90.710 Acquired absence of both cervix and uterus; Z90.721 Acquired absence of ovaries, unilateral; Z91.81 History of falling; Z90.49 Acquired absence of other specified parts of digestive tract; Z99.81 Dependence on supplemental oxygen; Z79.899 Other long term (current) drug therapy
CPT/HCPCS: 64448; 64999; 76942; 80053; 85025; 88305; 88311; 94660; 94760

== ENCOUNTER → 2022-12-11 | Outpatient (CLI) | payer MEDICARE ==
--- NOTE | 2022-12-11 21:03 | XR ---
EXAMINATION TYPE: XR chest 2V DATE OF EXAM: 12/11/2022 4:51 PM COMPARISON: Chest radiographs from 04/13/2022 TECHNIQUE: XR chest 2V Frontal and lateral views of the chest. CLINICAL INDICATION:Female, 62 years old with history of C64.1 MALIGNANT NEOPLASM OF RIGHT KIDNEY, EX CEPT R; FINDINGS: Lungs/Pleura: Low lung volumes are present. There is no evidence of pleural effusion, focal consolida tion, or pneumothorax. Pulmonary vascularity: Unremarkable. Heart/mediastinum: Cardiomediastinal silhouette is unremarkable. Musculoskeletal: No acute osseous pathology. IMPRESSION: Bibasilar atelectasis without acute cardiopulmonary disease/process.
--- NOTE | 2022-12-12 14:42 | CT ---
EXAMINATION TYPE: CT abdomen pelvis wo con CT DLP: 1432.2 mGycm, Automated exposure control for dose reduction was used. DATE OF EXAM: 12/11/2022 4:49 PM COMPARISON: 04/13/2022 CLINICAL INDICATION:Female, 62 years old with history of C64.1 MALIGNANT NEOPLASM OF RIGHT KIDNEY, EX CEPT R; f/u renal ca TECHNIQUE: Axial CT of the abdomen and pelvis. Sagittal and coronal reformats were created on a [employer] workstation. Contrast used: None Oral contrast used: without Oral Contrast FINDINGS: LOWER CHEST: Streaky atelectasis/scarring in the lung bases. ABDOMEN LIVER: Unremarkable GALLBLADDER AND BILE DUCTS: Gallbladder surgically absent. PANCREAS: Unremarkable. SPLEEN: Unremarkable. ADRENAL GLANDS: Unremarkable. KIDNEYS AND URETERS: The right kidney is surgically absent. No abnormal soft tissue in the surgical b ed. Imaging findings are similar to 04/13/2022. PELVIS BLADDER: Unremarkable REPRODUCTIVE: Unremarkable. ABDOMEN & PELVIS STOMACH AND BOWEL: Small hiatal hernia. No evidence of bowel obstruction. PERITONEUM/RETROPERITONEUM: No evidence of pneumoperitoneum or free fluid. . VASCULATURE: No evidence of aortic aneurysm. Atherosclerosis of the arterial vasculature. MUSCULOSKELETAL: No acute osseous abnormalities LYMPH NODES: No gross evidence for lymphadenopathy. SOFT TISSUE/ABDOMINAL WALL: Fat-containing umbilical hernia. Post surgical changes anterior abdominal wall. IMPRESSION: Right nephrectomy changes without evidence for local recurrence or lymphadenopathy to suggest metasta tic disease.
== END | disposition home or self-care (01) ==
LOC: RADCTMAIN 16:28
PROVIDERS: ATTEND Urology
DX: C64.1 Malignant neoplasm of right kidney, except renal pelvis (principal); J98.11 Atelectasis; Z90.5 Acquired absence of kidney
CPT/HCPCS: 71046; 74176